=== PATIENT | male | born 1950 | race Caucasian/White ===

== ENCOUNTER → 2019-05-21 | Outpatient (CLI) | payer OTHER ==
[~2019-05-21] MED LIST: ASPI81CH33 PO; ATEN50TA2 PO; CAPE1TAB2 PO; GLIP10TA PO; HYDR-3715 PO; LIDO4CRE4 TOP; LISI20TA19 PO; LOPE2CAP PO; MAGN400T3 PO; OMEP20CA4 PO; PERI12LIQ PO; PROC10TA4 PO; VITA-144 PO; ZOCO80TA PO
--- NOTE | 2019-05-22 08:57 | REP ---
PET/CT: HISTORY: Stage IV colon carcinoma. Restaging. 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 COMPARISONS: No comparison study available. TECHNIQUE: 50 minutes following the intravenous injection of a 8.94 mCi dose of F-18 FDG, three-dimensional PET scintigraphy is acquired from the skull base to the proximal thighs. Triplanar noncontrast CT scanning is acquired through the same anatomic range for attenuation correction, and image registration with scan parameters optimized to minimize radiation exposure to the patient. PET scintigraphy and CT datasets were fused and displayed on a workstation with multiplanar and projection display capability. There is a right internal jugular vein Jhzwti-S-Cdtb catheter in place in the superior vena cava. No pulmonary nodule is appreciated on accompanying chest CT images. There are multiple low-density lesions in the liver including a 4.6 cm well-circumscribed water density lesion consistent with a left lobe cyst. There is a smaller cyst in the left lobe. These show photopenia. There is a cyst in the left kidney measuring 3.4 cm. There is fairly extensive pancolonic diverticulosis. There is an area of mural thickening in the sigmoid colon without pericolonic inflammation. No significant colonic dilation is seen. There is no abnormal hypermetabolic uptake in the head and neck soft tissues or within the thorax. No abnormal hypermetabolic uptake is seen within the liver. In the pelvis, there is mildly hypermetabolic focal uptake in the rectosigmoid colon, which is focally above background gastrointestinal mucosal uptake. Maximum standard uptake value here is 7.42. Background gastrointestinal mucosal uptake in this patient's exam ranges up to 4.0. No hypermetabolic abdominal or pelvic adenopathy is seen. No other abnormal hypermetabolic uptake is seen. IMPRESSION: There is a single focus of abnormal hypermetabolic uptake in the rectosigmoid colon which may correspond to the patient's primary colon malignancy. There are multiple low-density lesions in the liver in addition to two apparent cysts. However, there is no abnormal hypermetabolic uptake in the liver. No abnormal hypermetabolic adenopathy are. Otherwise negative PET scintigraphy. Electronically Signed by Contreras Castelan MD 05/22/2019 11:16 A
== END ==
LOC: M PLARAD 10:22
PROVIDERS: ATTEND Internal Medicine Hematology
DX: C19 Malignant neoplasm of rectosigmoid junction (principal)
CPT/HCPCS: 78815; A9552

== ENCOUNTER → 2019-10-22 | Outpatient (CLI) | payer OTHER ==
[~2019-10-22] MED LIST changes: +METF500T13 PO; +OMEP1CAP73 PO; -OMEP20CA4 PO; +VITA100054 PO; +VITAD1000T PO; +XELO1TAB PO
--- NOTE | 2019-10-22 14:01 | REP ---
PET/CT: HISTORY: Restaging colon carcinoma. Metastatic to the liver being treated with systemic anti neoplastic therapy. COMPARISONS: Comparison PET/CT study May 21, 2019. TECHNIQUE: 48 minutes following the intravenous injection of a 8.40 mCi dose of F-18 FDG, three-dimensional PET scintigraphy is acquired from the skull base to the proximal thighs. Triplanar noncontrast CT scanning is acquired through the same anatomic range for attenuation correction, and image registration with scan parameters optimized to minimize radiation exposure to the patient. PET scintigraphy and CT datasets were fused and displayed on a workstation with multiplanar and projection display capability. PET/CT FINDINGS: Head and neck soft tissues remain unremarkable. A right-sided Qygspn-W-Jiow catheter is noted. There is no abnormal hypermetabolic uptake in the thoracic cavity. No axillary adenopathy or hypermetabolic uptake is seen. The previously noted low-density areas in the liver are less conspicuous and not definitely identified other than the two stable photopenic left lobe hepatic cysts. No abnormal hypermetabolic uptake is seen in the liver or spleen. No abnormal adrenal uptake is observed. There is extensive pancolonic diverticulosis again noted. The previously noted focus of uptake in the rectosigmoid colon is no longer visible. Maximum standard uptake value here today is 5.15, which is actually less than normal colonic mucosal uptake elsewhere on today's scan. Previously, maximum standard uptake value at this level was 7.42. No other abnormality. IMPRESSION: No abnormal colonic, retroperitoneal cathi, or hepatic hypermetabolic uptake is visible today. Electronically Signed by Contreras Castelan MD 10/22/2019 05:08 P
== END ==
LOC: M PLARAD 08:04
PROVIDERS: ATTEND Internal Medicine Hematology
DX: C18.8 Malignant neoplasm of overlapping sites of colon (principal)
CPT/HCPCS: 78815; A9552

== ENCOUNTER → 2019-12-26 | Outpatient (CLI) | payer OTHER ==
--- NOTE | 2019-12-26 11:56 | RADONC ---
DATE OF SERVICE: 12/26/2019 DIAGNOSIS: Metastatic rectal carcinoma. HISTORY OF PRESENT ILLNESS: Mr. Victor is a pleasant 69-year-old gentleman who carries the diagnosis of metastatic rectal carcinoma to the liver. He was in his usual state of health until spring when he presented with 1-week history of rectal bleeding. He was evaluated at the [facility] in [place], [place], which imaging studies showed right lower quadrant mass. The patient then underwent a colonoscopy in October 2017, which reported mass partially obstructing the mid rectum. Ultrasound showed four mass lesions in the liver consistent with metastatic disease in the right lobe only. This was subsequently confirmed by CT scan and biopsy documented adenocarcinoma of the colon. The patient then started chemotherapy at [place]. His CEA in February of 2018 was 231 ng/mL. He began systemic chemotherapy using FOLFIRINOX with Avastin, complicated by profound fatigue with near syncope, and treatment was then changed to CAPOX with Avastin. This was continued until he developed peripheral neuropathy, which led to discontinuation of oxaliplatin. The patient's CEA level peaked at 473 on March of 2018 and subsequently declined 48 by May of 2018. Since then, transferred again to [facility] to [facility], then transferred to [facility] in [place], and he also recently saw a surgeon in [place]. At this point, he is in excellent condition. He had the PET CT in September 2019, and the lesion in the liver no longer FDG avid, and the lesion in the upper rectum still retains mild activity. From the CT compared to the PET CT, it appeared his right liver is significantly atrophied, and his left side is hypertrophied, and his CEA prior to chemotherapy was 473. Now is 1.2, which is consistent with opacity and that he has had the great response. PAST MEDICAL HISTORY: As mentioned, significant peripheral neuropathy, essential hypertension, diabetes, hyperlipidemia. PAST SURGICAL HISTORY: Appendectomy at age 12. FAMILY HISTORY: His father at age 62. He had cancer of the larynx. His mother at the age of 84. SOCIAL HISTORY: He is a [place] . A former smoker. Denies alcohol or drug use. CURRENT MEDICATIONS: Are: - atenolol 50 mg tablet daily - capecitabine 1500 mg tablet twice daily - chlorhexidine 0.12% solution swish and swallow - colecalciferol 1000 units once daily - glipizide 10 mg tablet twice a day - lisinopril 12.5 - loperamide 2 mg capsule p.r.n. - metformin 500 mg tablet twice daily - omeprazole 20 mg before breakfast - prochlorperazine 10 mg as needed - simvastatin 80 mg daily He has no known drug allergies. SYSTEMIC REVIEW: General: Denies chills, fatigue, malaise, recent weight changes. Constitutional: Denies fatigue. Eyes: Denies visual disturbances. HEENT: Denies headache, dysphagia, sore throat, epistaxis. Pulmonary: Denies dyspnea, cough. Cardiovascular: Denies palpitation, chest pain, orthopnea. Gastrointestinal: Denies nausea, vomiting, diarrhea. Genitourinary: Denies urinary frequency, dysuria, incontinence. Skin: Denies rash, jaundice, bruising. Hematologic: Denies bruising, petechiae. Neurological: Denies weakness, numbness. Psychiatric: Denies depression or anxiety. PHYSICAL EXAMINATION: ECOG performance status 0 Vital signs: Weight 216.8 pounds, temperature 98, pulse 72, respiration 18, BP 185/97, O2 saturation is 100%. General: The patient is alert, oriented, well developed, nourished male. Eyes: Conjunctivae, lids normal. ENT: Atraumatic. Neck: No palpable lymphadenopathy. Supple. Chest: Clear to auscultations. Heart: Regular rhythm and rate. Abdomen: Is obese, soft, and nontender, nondistended without any palpable mass, organomegaly. Extremities: No cyanosis. No clubbing. No edema. Skin: No rashes. No lesions. Neurological: No weakness. Psychological: Mood is normal. DIAGNOSIS: metastatic rectal cancer ICD-10 CODEC: 21.8 , ASSESSMENT, AND THE RECOMMENDATION: Mr. Victor is a 69-year-old gentleman. He presented with rectal bleeding in spring, and he had a diagnosis of metastatic colon cancer to the liver. He started chemotherapy with FOLFIRINOX plusAvastin and changed to CAPOX with Avastin, continued until he developed the peripheral neuropathy. Since then, he has been on capecitabine. His CEA level was 473 in March 2018 and decreased, declined to 1.2 currently. Most recent PET CT in September 2019, the liver no longer FDG avid. However, the lesion in the upper rectum still retains mild activity. I have discussed the nature of the disease and options of treatment. At this point, I recommended surgical exploration , as well as check of liver lesions. Depends on the surgical findings, he will be reevaluated for radiation therapy. JESUSITA
== END ==
LOC: M ONCR 08:40
PROVIDERS: ATTEND Radiology Radiation Oncology
DX: C20 Malignant neoplasm of rectum (principal)

== ENCOUNTER 2020-01-16 09:19 | Outpatient (RCR) | payer OTHER ==
--- NOTE | 2020-01-09 23:46 | RADONC ---
RADIATION ONCOLOGY PROGRESS NOTE DATE: 01/01/2020 CHART NUMBER: [id number] DIAGNOSIS: Rectal cancer. STAGE: IV. PROGRESS NOTE : Mr. Victor is a 69-year-old gentleman that was seen by Dr. Khai MD in our department in consultation on 12/26/2019. He was referred for consideration of preoperative concomitant chemotherapy and radiosensitizing chemotherapy preoperatively for residual disease in the rectum. Dr. Ridley recommended surgical exploration without preoperative radiation therapy. Dr. Chang, her medical oncologist, came to discuss this case with me. He had been speaking with the colorectal surgeons who strongly suggest preoperative radiation prior to surgery. Dr. Chang agrees and came to discuss the case with me. I have personally reviewed the patient's PET scan and overall course of treatment. I do believe he is a candidate for preoperative radiation therapy, and therefore, at this time, I have now ordered for simulation for his rectal treatments. In light of the fact that we are now a week out since initial consultation, I have asked for this simulation to be expedited as soon as possible. Once again, in summary, now that I have discussed this case with the medical oncologist and have heard the opinions of the colorectal surgeons, I have decided to offer this patient preoperative radiation and have ordered initiation of simulation and treatment. cc: Reji Chang MD
--- NOTE | 2020-01-11 07:02 | RADONC ---
RADIATION ONCOLOGY SIMULATION NOTE DATE: 01/06/2020 CHART #: [id number] Mr. Victor was taken to the CT scan for CT simulation of his rectal field. CT was accomplished without difficulty or discomfort. Radiation treatment planning is underway and radiation treatments will begin subsequently. An immobilization device was created and will be used throughout the course of treatment. It was created without difficulty or discomfort. I was physically present throughout the course of CT simulation.
[~2020-01-16 09:19] MED LIST changes: +D31000TA2 PO; -LISI20TA19 PO; +LISI20TA35 PO; -VITAD1000T PO
== END 2020-01-24 ==
LOC: M ONCR 09:19
PROVIDERS: ATTEND Radiology Radiation Oncology
DX: C20 Malignant neoplasm of rectum (principal)

== ENCOUNTER → 2020-04-21 | Outpatient (CLI) | payer OTHER ==
--- NOTE | 2020-04-22 09:21 | REP ---
INDICATION: STAGING COLON CA colon carcinoma metastasized to the liver. Rectal carcinoma originally diagnosed in 2018. COMPARISON: Comparison PET-CT studies are from October 22, 2019 and May 21, 2019.. TECHNIQUE: Sixty-six minutes following the intravenous injection of a 8.4 mCi dose of F-18 FDG, three-dimensional PET scintigraphy is acquired from the skull base to the proximal thighs. Triplanar noncontrast CT scanning is acquired through the same anatomic range for attenuation correction, and image registration with scan parameters optimized to minimize radiation exposure to the patient. PET scintigraphy and CT datasets were fused and displayed on a workstation with multiplanar and projection display capability. FINDINGS: There is no evidence of soft tissue adenopathy or abnormal soft tissue uptake in the head and neck. There is a focus of mildly increased uptake associated with a calcified disc protrusion in the midcervical spine. This does not appear to be neoplastic. No abnormal pulmonary parenchymal or intrathoracic uptake is seen. No extra thoracic adenopathy is observed in the axilla or supraclavicular nodes. There are unfortunately 2 new foci of hypermetabolic uptake in the liver consistent with metastatic disease. Largest of these is 2.9 cm in diameter in the posterior aspect of the right lobe of the liver where maximum standard uptake value is 11.33. The 2nd lesion is more lateral in the right mid hepatic lobe, 2.5 cm in diameter, with maximum standard uptake value also elevated at 10.52. No other focal liver lesion is seen. There is however hypermetabolic new lymphadenopathy in the retroperitoneum. An aortocaval lymph node displays hypermetabolic uptake, 6.24 SUV. This lymph node measures 9 x 14 mm. There is a left periaortic lymph which is new and mildly enlarged measuring 11 by 19 mm. This also displays hypermetabolic uptake with a maximum standard uptake value 6.46. No other abnormal hypermetabolic uptake is seen in the abdomen or pelvis. IMPRESSION: New foci of hypermetabolic uptake consistent with metastases in retroperitoneal lymph nodes and at 2 foci within the liver. <Electronically signed by Abdi Castelan > 04/22/20 [id number]
== END ==
LOC: M PLARAD 10:57
PROVIDERS: ATTEND Nurse Practitioner
DX: C18.9 Malignant neoplasm of colon, unspecified (principal); C78.7 Secondary malignant neoplasm of liver and intrahepatic bile duct; R93.2 Abnormal findings on diagnostic imaging of liver and biliary tract; R59.0 Localized enlarged lymph nodes
CPT/HCPCS: 78815; A9552

== ENCOUNTER 2020-10-13 14:43 | Observation (INO) | payer OTHER ==
[~2020-10-13] VITALS: Ht 172.7 cm; Wt 94.1 kg
[~2020-10-13 14:43] MED LIST changes: +COVI100V IM; +K-TA1TAB PO; +LOPE1CAP5 PO; +ONDA8TAB10 PO
[2020-10-13] MEDS ORDERED: NS 1,000 ML IV SCH (15:10)
--- NOTE | 2020-10-13 15:16 | REP ---
INDICATION: neuro symptoms. COMPARISON: None. TECHNIQUE: Axial CT images with multiplanar reformations. FINDINGS: No acute bleed or acute large vessel territorial infarct. Ventricles, cisterns and sulci are within normal limits. No mass effect or midline shift. No abnormal fluid collections. Scattered ill-defined hypodensities seen throughout the white matter is most consistent with sequelae of chronic microvascular ischemic disease. Paranasal sinuses and mastoid air cells are clear IMPRESSION: No acute findings. <Electronically signed by Juan Pablo Pineda > 10/13/20 [id number]
[2020-10-13 15:36] LABS: BASO % 0.2 % (0.0-1.0); HEMATOCRIT 32.6 % (42.0-52.0); HEMOGLOBIN 10.7 g/dl (13.5-17.5); LYMPH # 0.3 10^3/uL (1.5-5.0); LYMPH % 7.6 % (24.0-44.0); MEAN CORPUSCULAR HEMOGLOBIN 31.7 pg (27.0-33.0); MEAN CORPUSCULAR HGB CONC 32.8 g/dl (32.0-36.5); MEAN CORPUSCULAR VOLUME 96.4 fl (80.0-96.0); MONO # 0.1 10^3/uL (0.0-0.8); MONO % 1.3 % (2.0-8.0); NEUTROPHILS % 89.3 % (36.0-66.0); RED BLOOD COUNT 3.38 10^6/uL (4.30-6.10); WHITE BLOOD COUNT 4.5 10^3/uL (4.0-10.0)
[2020-10-13 15:45] LABS: PLATELET COUNT, AUTOMATED 91 10^3/uL (150-450)
--- NOTE | 2020-10-13 15:52 | REP ---
INDICATION: Altered Mental Status COMPARISON: None. TECHNIQUE: Portable AP view of the chest FINDINGS: The mediastinum and cardiac silhouette are within normal limits for portable technique. Jjxlji-S-Fteo identified with tip in the SVC. The lung green are clear without acute consolidation, effusion, or pneumothorax. Skeletal structures are intact. IMPRESSION: No acute cardiopulmonary process appreciated. <Electronically signed by Jhonathan Villegas > 10/13/20 [id number]
[2020-10-13 16:03] LABS: ALT/SGPT 17 U/L (12-78); BLOOD UREA NITROGEN 12 MG/DL (7-18); CALCIUM LEVEL 7.8 MG/DL (8.8-10.2); CARBON DIOXIDE LEVEL 28 MEQ/L (21-32); CHLORIDE LEVEL 104 MEQ/L (98-107); CREATININE FOR GFR 1.12 MG/DL (0.70-1.30); GLOMERULAR FILTRATION RATE > 60.0 (>49); GLUCOSE, FASTING 203 MG/DL (70-100); SODIUM LEVEL 140 MEQ/L (136-145)
[2020-10-13 16:04] LABS: ACETAMINOPHEN LEVEL < 2.0 UG/ML (10.0-30.0); ALBUMIN 3.4 GM/DL (3.2-5.2); BILIRUBIN,DIRECT 0.2 MG/DL (0.0-0.2); BILIRUBIN,TOTAL 0.5 MG/DL (0.2-1.0); CK-MB VALUE MASS < 1.0 NG/ML (<3.6); CPK CREATINE PHOSPHOKINASE 116 U/L (39-308); ETHYL ALCOHOL (ETHANOL) < 0.003 % (0.000-0.010); MB/CK RELATIVE INDEX 0.86 (< OR =4); THYROID STIMULATING HORMONE 0.856 uIU/ML (0.358-3.740); TOTAL PROTEIN 7.4 GM/DL (6.4-8.2); TROPONIN I < 0.02 NG/ML (< 0.10)
[2020-10-13] MEDS ORDERED: POTASSIUM CHLORIDE 10 MEQ SR TABLET PO ONE (16:30)
[2020-10-13] MEDS ORDERED: KCL 10MEQ/100ML SWI (KRUN) 10 MEQ in IV 1 EA IV ONE (17:00)
[2020-10-13 17:08] LABS: AMPHETAMINES LEVEL URINE NEGATIVE (NEGATIVE); BARBITURATES URINE NEGATIVE (NEGATIVE); BENZODIAZEPINES URINE NEGATIVE (NEGATIVE); CANNABINOIDS URINE NEGATIVE (NEGATIVE); COCAINE METABOLITE URINE NEGATIVE (NEGATIVE); METHADONE URINE NEGATIVE (NEGATIVE); OPIATES URINE NEGATIVE (NEGATIVE); PHENCYCLIDINE URINE NEGATIVE (NEGATIVE)
[2020-10-13] MEDS ORDERED: DEXTROSE 50% 50 ML SYRINGE IV PRN (17:10)
[2020-10-13] MEDS ORDERED: GLUCAGON INJ 1MG VIAL SC PRN (17:10)
[2020-10-13] MEDS ORDERED: GLUCOSE 4GM CHEW TABLET PO PRN (17:10)
--- NOTE | 2020-10-13 17:29 | HPEPDOC ---
[facility] Medical History & Physical Date of Admission Oct 13, 2020 Date of Service: Oct 13, 2020 History and Physical Chief complaint: Who presented to the emergency room with difficulty expressing himself History of present illness: Patient is a 70-year-old male who presented to the emergency room with difficulty expressing himself. Patient reports that he follows with oncology earlier today had received an infusion of Oxaliplatin and Bevacizumab, Fosaprepitant, Dexamethasone, Palonosetron, Diphenhydramine, Tylenol. Patient had gone home after the infusions and presented again this afternoon because he was having difficulty expressing himself. Patient reported that he was unable to express the words out of his mouth but did not have any confusion or difficulty with understanding. He reports that this occurred for a brief period and had resolved. However, it worried him and he came to the ER for evaluation. Currently patient denies any chest pain, shortness of breath, palpitations or cough reported nausea earlier today, which has resolved. Denies any vomiting, abdominal pain consultation, diarrhea, or urinary discomfort. Denies any fevers or chills. Patient reports that his weight and appetite have been fairly normal. Past Medical History: HTN NIDDM2 DLP GERD Rectal Adenocarcinoma (Dx 10/2017; on chemotherapy; s/p radidation; s/p resection of solitary liver metastasis) Past Surgical History: Resection of liver mass Chemo-Port placement Appendectomy, 1966 Allergies: See below Medications: See below Family History: - Sr. with a history of breast cancer Social History: - Denies the use of illicit drugs; patient reports a remote history of smoking for 4 years when he was in the [employer]; Has quit the use of alcohol 2 years ago - Denies recent travel or sick contacts - Lives alone - Occupation; patient reports that he used to be part of the [employer] and then worked at [employer] for 20 years Review of Systems: 10 point review of systems complete, all negative otherwise stated in HPI Physical exam: - Vitals: BP [144/78], HR [75], RR [18], Sat [98%RA], Temp [95.0F] - General: Lying in bed, Speaking in full sentences, AAOx3 - HEENT: NC, AT, PERRLA - CVS: RRR, +S1S2 - Lungs: Fair air entry bilaterally, No appreciable wheezing / rales / rhonchi - Abdomen: Soft, Non-distended, Non-tender - Extremities: No lower extremity edema, No calf tenderness - Neuro: 5/5 strength at upper / lower extremities bilaterally, CN2-12 grossly intact - Skin: No visible rashes Labs: See below Imaging: CT head 10/13: No acute findings. CXR 10/13: No acute cardiopulmonary process appreciated. EKG: See below Assessment and Plan: Difficulty expressing self - likely 2/2 medications (chemotherapy), less likely 2/2 stroke - Patient presented to the emergency room with difficulty expressing himself - Patient reported that this occurred transiently but has now resolved completely - Physical does not reveal any focal neurologic deficits - CT head is negative - Will check MRI/MRA/cardiac risk profile/duplex carotid ultrasound/echocardiogram - Will c/w telemetry monitoring and neuro checks - Will c/w Atorvastatin 80 and ASA 81 Rectal Adenocarcinoma - Dx 10/2017; on chemotherapy - s/p radiation - s/p resection of solitary liver metastasis - Patient follows with Dr. Fisher of oncology; has received infusion on the date of admission - Received Oxaliplatin and Bevacizumab, Fosaprepitant, Dexamethasone, Palonosetron on 10/13 AM - Will have outpatient follow up with Oncology HTN - Will allow for permissive HTN until MRI results - Will c/w Atenolol - Will hold Lisinopril / HCTZ NIDDM2 - Will start ISS DLP - c/w Simvastatin and ASA 81 GERD - c/w Omeprazole DVT prophylaxis - Will start TEDs/Sequentials Disposition: - Anticipate DC within 24 hours Vital Signs Vital Signs Date Time Temp Pulse Resp B/P (MAP) Pulse Ox O2 Delivery O2 Flow Rate FiO2 10/13/20 14:57 95.0 84 22 145/94 (111) 99 Room Air Laboratory Data Labs 24H Laboratory Tests 2 10/13/20 15:21: Immature Granulocyte % (Auto) 1.6, Neutrophils (%) (Auto) 89.3H, Lymphocytes (%) (Auto) 7.6L, Monocytes (%) (Auto) 1.3L, Eosinophils (%) (Auto) 0.0, Basophils (%) (Auto) 0.2, Neutrophils # (Auto) 4.0, Lymphocytes # (Auto) 0.3L, Monocytes # (Auto) 0.1, Eosinophils # (Auto) 0.0, Basophils # (Auto) 0.0, Nucleated Red Blood Cells % (auto) 0.0, Immature Platelet Fraction 5.6, Anion Gap 8, Glomerular Filtration Rate > 60.0, Lactic Acid Level 2.7*H, Calcium Level 7.8L, Total Bilirubin 0.5, Direct Bilirubin 0.2, Aspartate Amino Transf (AST/SGOT) 25, Alanine Aminotransferase (ALT/SGPT) 17, Alkaline Phosphatase 67, Ammonia 20, Total Creatine Kinase 116, Creatine Kinase MB < 1.0, Creatine Kinase MB Relative Index 0.86, Troponin I < 0.02, Total Protein 7.4, Albumin 3.4, Albumin/Globulin Ratio 0.9, Thyroid Stimulating Hormone (TSH) 0.856, Acetaminophen Level < 2.0L, Ethyl Alcohol Level < 0.003 10/13/20 16:15: Urine Color YELLOW, Urine Appearance CLEAR, Urine pH 5.0, Urine Specific [place] 1.017, Urine Protein 2+H, Urine Glucose (UA) 3+H, Urine Ketones NEGATIVE, Urine Blood 1+H, Urine Nitrite NEGATIVE, Urine Bilirubin NEGATIVE, Urine Urobilinogen 0.2, Urine Leukocyte Esterase NEGATIVE, Urine WBC (Auto) 1, Urine RBC (Auto) 1, Urine Hyaline Casts (Auto) 0, Urine Bacteria (Auto) NEGATIVE, Urine Squamous Epithelial Cells 0, Urine Mucus (Auto) SMALL, Urine Sperm (Auto) , Urine Opiates Screen NEGATIVE, Urine Methadone Screen NEGATIVE, Urine Barbiturates Screen NEGATIVE, Urine Phencyclidine Screen NEGATIVE, Urine Amphetamines Screen NEGATIVE, Urine Benzodiazepines Screen NEGATIVE, Urine Cocaine Metabolite Screen NEGATIVE, Urine Cannabinoids Screen NEGATIVE CBC/BMP Laboratory Tests 10/13/20 15:21 Home Medications Scheduled Aspirin (Aspirin) 81 Mg Tab.chew, 81 MG PO DAILY for pain Atenolol (Atenolol) 50 Mg Tablet, 75 MG PO DAILY Capecitabine (Capecitabine) 500 Mg Tablet, 4 TAB PO BID 14 DAYS ON 7 DAYS OFF Cholecalciferol (Vitamin D3) (Vitamin D3) 1,000 Unit Tablet, 1,000 UNITS PO DAILY for Vitamin D deficiency Take 1000 mg po q day Glipizide (Glipizide) 10 Mg Tablet, 10 MG PO BID Lidocaine (Lidocaine) 15 Gm Cream..g., 1 APLCT TOP ASDIRECTED Apply to [facility] 30 minutes prior to accessing Lisinopril/Hydrochlorothiazide (Lisinopril-Hctz 20-12.5 mg Tab) 1 Each Tablet, 1 TAB PO DAILY Loperamide HCl (Loperamide) 2 Mg Capsule, 2 MG PO ASDIRECTED one capsule after each bowel movement to a maximum 6 daily Magnesium Oxide (Magnesium Oxide) 400 Mg Tablet, 400 MG PO DAILY for constipation Metformin HCl (Metformin HCl) 500 Mg Tablet, 500 MG PO BID Omeprazole (Omeprazole) 20 Mg Capsule.dr, 20 MG PO DAILY Potassium Chloride (K-Tab ER) 20 Meq Tablet.er, 1 TAB PO DAILY for low potassium One tab po daily after food Simvastatin (Zocor) 80 Mg Tablet, 80 MG PO DAILY Scheduled PRN Ondansetron HCl (Ondansetron HCl) 8 Mg Tablet, 8 MG PO Q8H PRN for NAUSEA OR VOMITING Prochlorperazine Maleate (Prochlorperazine Maleate) 10 Mg Tablet, 10 MG PO Q6H PRN for NAUSEA Miscellaneous Medications Covid-19 Vacc,Mrna(Moderna)/Pf (Moderna Covid19 Vacc(Unapprov)) 100 Mcg/0.5 Ml Vial, 100 MCG IM [Ct Fax Number] [place] FAX NUMBER [phone] Allergies Coded Allergies: No Known Allergies (Unverified , 05/08/19) ADRIÁN FRIEDMAN MD Oct 13, 2020 17:29
--- NOTE | 2020-10-13 17:43 | REP ---
INDICATION: Difficulty speaking COMPARISON: None. TECHNIQUE: Gomez scale and color Doppler evaluation using linear high frequency transducer Findings: FINDINGS: Two-dimensional gomez scale and color images demonstrate normal arterial lumen with laminar flow and no appreciable narrowing. Color Doppler interrogation demonstrates normal arterial wave patterns and velocities with no significant spectral broadening. Normal flow direction is appreciated in the bilateral vertebral arteries. ICA peak systolic velocity: Right 60.9 cm/s; Left 79.2 cm/s ICA diastolic velocity: Right 17.4 cm/s; Left 25.2 cm/s ECA peak systolic velocity: Right 106 cm/s; Left 110 cm/s CCA peak systolic velocity: Right 55.2 cm/s; Left 97.4 cm/s ICA/CCA ratio: Right 1.1 cm/s; Left 0.8 cm/s IMPRESSION: No hemodynamically significant areas of narrowing or stenosis appreciated. Based on set standards narrowing falls within the normal/less than 50% range. <Electronically signed by Jhonathan Villegas > 10/13/20 [id number]
[2020-10-13] MEDS ORDERED: ASPI81TA26 PO (17:45)
[2020-10-13 18:23] LABS: CHOLESTEROL LEVEL 123 MG/DL (<200); CHOLESTEROL RISK RATIO 3.843 (<5); HDL CHOLESTEROL 32 MG/DL (>40); LDL CHOLESTEROL 39 MG/DL (<100); NON-HDL-C 91 MG/DL; TRIGLYCERIDES LEVEL 261 MG/DL (<150)
[2020-10-13 19:23] LABS: RSV AMPLIFICATION NEGATIVE (NEGATIVE)
[2020-10-13 20:38] VITALS: BP 168/76
--- NOTE | 2020-10-13 20:55 | REPVR ---
PROCEDURE INFORMATION: Exam: MR Head Without Contrast Exam date and time: 10/13/2020 8:29 PM Age: 70 years old Clinical indication: Speech disturbance; Slurred speech; Additional info: Difficulty speaking TECHNIQUE: Imaging protocol: MR of the head without contrast. COMPARISON: CT Head without contrast 10/13/2020 3:05 PM FINDINGS: Brain: There is no acute infarct. No acute intracranial hemorrhage is seen. No mass, mass effect, midline shift, or herniation is noted. There are mild non-specific foci of T2 and FLAIR hyperintensity in the periventricular and subcortical white matter and faye, which are likely the sequela of chronic small vessel ischemic injury. Incidental note is made of calcifications in the globus pallidus bilaterally. Cerebral ventricles: The ventricles are mildly dilated in proportion to the sulci, which is compatible with mild generalized cerebral volume loss. Bones/joints: Unremarkable. Paranasal sinuses: There is minimal mucosal thickening in the frontal, maxillary, and ethmoid sinuses. No air-fluid levels are present in the sinuses. Mastoid air cells: The mastoid air cells are well aerated. Orbital cavity: Unremarkable. Soft tissues: Unremarkable. IMPRESSION: 1. No acute infarct or acute intracranial abnormality. 2. Mild chronic microangiopathic changes and mild cerebral atrophy. Electronically signed by: Antelmo Worrell On 10/13/2020 20:55:35 PM
[2020-10-13] MEDS ORDERED: SIMVASTATIN 40 MG TAB PO SCH (21:00)
[2020-10-13] MEDS ORDERED: HumaLOG INSULIN (NovoLOG) PER UNIT SC SCH (21:00)
--- NOTE | 2020-10-13 21:01 | REPVR ---
PROCEDURE INFORMATION: Exam: MRA Head Without Contrast; Arteriography Exam date and time: 10/13/2020 8:29 PM Age: 70 years old Clinical indication: Speech disturbance; Slurred speech; Additional info: Difficulty speaking TECHNIQUE: Imaging protocol: Magnetic resonance angiography head without contrast. Exam focused on the arteries. COMPARISON: CT Head without contrast 10/13/2020 3:05 PM FINDINGS: ANTERIOR CIRCULATION: Right internal carotid artery: Intracranial segment is patent with no significant stenosis. No aneurysm. Right middle cerebral artery: No occlusion or significant stenosis. No aneurysm. Right anterior cerebral artery: No occlusion or significant stenosis. No aneurysm. Left internal carotid artery: Intracranial segment is patent with no significant stenosis. No aneurysm. Left middle cerebral artery: No occlusion or significant stenosis. No aneurysm. Left anterior cerebral artery: No occlusion or significant stenosis. No aneurysm. POSTERIOR CIRCULATION: Right vertebral artery: No occlusion or significant stenosis. No aneurysm. Left vertebral artery: No occlusion or significant stenosis. No aneurysm. Basilar artery: No occlusion or significant stenosis. No aneurysm. Right posterior cerebral artery: No occlusion or significant stenosis. No aneurysm. Left posterior cerebral artery: No occlusion or significant stenosis. No aneurysm. IMPRESSION: No stenosis or occlusion. Electronically signed by: Jah Hdz On 10/13/2020 21:01:08 PM
[2020-10-13] MEDS: HumaLOG INSULIN (NovoLOG) PER UNIT SC SCH (22:22)
[2020-10-13] MEDS: NS 1,000 ML IV SCH (22:22)
[2020-10-14] VITALS: BP 172/80
[2020-10-14 04:00] VITALS: BP 176/78
[2020-10-14 06:40] LABS: HEMATOCRIT 30.1 % (42.0-52.0); HEMOGLOBIN 9.9 g/dl (13.5-17.5); LYMPH # 0.3 10^3/uL (1.5-5.0); LYMPH % 5.5 % (24.0-44.0); MEAN CORPUSCULAR HEMOGLOBIN 31.5 pg (27.0-33.0); MEAN CORPUSCULAR HGB CONC 32.9 g/dl (32.0-36.5); MEAN CORPUSCULAR VOLUME 95.9 fl (80.0-96.0); MONO # 0.2 10^3/uL (0.0-0.8); MONO % 4.2 % (2.0-8.0); NEUTROPHILS # 4.9 10^3/uL (1.5-8.5); NEUTROPHILS % 89.9 % (36.0-66.0); RED BLOOD COUNT 3.14 10^6/uL (4.30-6.10); WHITE BLOOD COUNT 5.4 10^3/uL (4.0-10.0)
[2020-10-14 06:42] LABS: PLATELET COUNT, AUTOMATED 80 10^3/uL (150-450)
[2020-10-14 07:26] LABS: BLOOD UREA NITROGEN 17 MG/DL (7-18); CALCIUM LEVEL 7.8 MG/DL (8.8-10.2); CARBON DIOXIDE LEVEL 26 MEQ/L (21-32); CHLORIDE LEVEL 107 MEQ/L (98-107); CREATININE FOR GFR 0.93 MG/DL (0.70-1.30); GLOMERULAR FILTRATION RATE > 60.0 (>49); GLUCOSE, FASTING 236 MG/DL (70-100); POTASSIUM SERUM 3.5 MEQ/L (3.5-5.1); SODIUM LEVEL 141 MEQ/L (136-145)
[2020-10-14] MEDS: HumaLOG INSULIN (NovoLOG) PER UNIT SC SCH ×2 (08:43→13:09)
[2020-10-14] MEDS ORDERED: POTASSIUM CHLORIDE 10 MEQ SR TABLET PO SCH (09:00)
[2020-10-14] MEDS ORDERED: atenoloL 50 MG TAB PO SCH (09:00)
[2020-10-14] MEDS ORDERED: VITAMIN D 1,000 INTERNATIONAL UNITS TABLET PO SCH (09:00)
[2020-10-14] MEDS ORDERED: MAGNESIUM OXIDE 400MG TAB (MAG-OX) PO SCH (09:00)
[2020-10-14] MEDS ORDERED: hydroCHLOROthiazide 12.5 MG CAPSULE PO SCH (09:00)
[2020-10-14] MEDS ORDERED: OMEPRAZOLE 20 MG CAP PO SCH (09:00)
[2020-10-14] MEDS ORDERED: ASPIRIN 81MG ENTERIC TABLET PO SCH (09:00)
[2020-10-14] MEDS: NS 1,000 ML IV SCH (09:41)
[2020-10-14 12:00] VITALS: BP 168/86
--- NOTE | 2020-10-14 12:38 | DS.PDOC ---
Discharge Summary General Date of Admission Oct 13, 2020 at 14:44 Date of Discharge 10/14/2020 Discharge Summary PROCEDURES PERFORMED DURING STAY: [None]. ADMITTING DIAGNOSES / DISCHARGE DIAGNOSES: COMPLICATIONS/CHIEF COMPLAINT: Difficulty expressing self HISTORY OF PRESENT ILLNESS: Patient is a 70-year-old male who presented to the emergency room with difficulty expressing himself. Patient reports that he follows with oncology earlier today had received an infusion of Oxaliplatin and Bevacizumab, Fosaprepitant, Dexamethasone, Palonosetron, Diphenhydramine, Tylenol. Patient had gone home after the infusions and presented again this afternoon because he was having difficulty expressing himself. Patient reported that he was unable to express the words out of his mouth but did not have any confusion or difficulty with understanding. He reports that this occurred for a brief per iod and had resolved. However, it worried him and he came to the ER for evaluation. Patient was admitted to the hospital service for further evaluation and treatment. HOSPITAL COURSE: Difficulty expressing self - likely 2/2 medications (chemotherapy), unlikely 2/2 stroke / TIA - Patient presented to the ER with difficulty expressing himself; patient reports that he usually gets similar symptoms after receiving high doses of chemotherapy - Patient reported that this occurred transiently but has now resolved completely - as not had any recurrence since admission - Physical does not reveal any focal neurologic deficits - CT / MRI / MRA / Carotid US negative (noted below) - c/w Atorvastatin 80 and ASA 81 based on outpatient regimen - Will have outpatient follow-up with primary care provider within the next 7 days Rectal Adenocarcinoma - Dx 10/2017; on chemotherapy - s/p radiation - s/p resection of solitary liver metastasis - Patient follows with Dr. Fisher of oncology; has received infusion on the date of admission - Received Oxaliplatin and Bevacizumab, Fosaprepitant, Dexamethasone, Palonosetron on 10/13 AM - Outpatient follow up with Oncology HTN - BP elevated this morning - however resumed home regimen this morning; will repeat BP prior to discharge - c/w Atenolol; resumed Lisinopril / HCTZ NIDDM2 - c/w ISS; will resume oral regimen as an outpatient DLP - c/w Simvastatin and ASA 81 GERD - c/w Omeprazole DVT prophylaxis - c/w TEDs/Sequentials DISCHARGE MEDICATIONS: Please see below. ALLERGIES: Please see below. PHYSICAL EXAMINATION ON DISCHARGE: Vitals (See below) General: Lying in bed, no acute distress, comfortable, AAOx3 HEENT: NC, AT CVS: RRR, +S1S2 Lungs: Fair air entry b/l, -w/r/r Abdomen: Soft, ND, NT Extremities: - Edema, - Calf tenderness LABORATORY DATA: Please see below. IMAGING: CT head 10/13: No acute findings. CXR 10/13: No acute cardiopulmonary process appreciated. MRA Brain 10/13: No stenosis or occlusion. Carotid Vascular US 10/13: No hemodynamically significant areas of narrowing or stenosis appreciated. Based on set standards narrowing falls within the normal/less than 50% range. MRI Brain 10/13: 1. No acute infarct or acute intracranial abnormality. 2. Mild chronic microangiopathic changes and mild cerebral atrophy. ACTIVITY: [As tolerated]. DISCHARGE PLAN: Follow-up with primary care provider within the next 7 days Remain compliant with treatment plan and medications Return to the ER if you experience any problems DISPOSITION: Home with services DISCHARGE CONDITION: [Stable]. TIME SPENT ON DISCHARGE: 35 minutes Vital Signs/I&Os Vital Signs Date Time Temp Pulse Resp B/P (MAP) Pulse Ox O2 Delivery O2 Flow Rate FiO2 10/14/20 08:42 84 180/78 10/14/20 08:00 97.1 20 99 Room Air I&O- Last 24 Hours up to 6 AM 10/14/20 06:00 Intake Total 300 ml Output Total 0 ml Balance 300 ml Laboratory Data Labs 24H Laboratory Tests 2 10/13/20 15:21: Immature Granulocyte % (Auto) 1.6, Neutrophils (%) (Auto) 89.3H, Lymphocytes (%) (Auto) 7.6L, Monocytes (%) (Auto) 1.3L, Eosinophils (%) (Auto) 0.0, Basophils (%) (Auto) 0.2, Neutrophils # (Auto) 4.0, Lymphocytes # (Auto) 0.3L, Monocytes # (Auto) 0.1, Eosinophils # (Auto) 0.0, Basophils # (Auto) 0.0, Nucleated Red Blood Cells % (auto) 0.0, Immature Platelet Fraction 5.6, Anion Gap 8, Glomerular Filtration Rate > 60.0, Lactic Acid Level 2.7*H, Calcium Level 7.8L, Total Bilirubin 0.5, Direct Bilirubin 0.2, Aspartate Amino Transf (AST/SGOT) 25, Alanine Aminotransferase (ALT/SGPT) 17, Alkaline Phosphatase 67, Ammonia 20, Total Creatine Kinase 116, Creatine Kinase MB < 1.0, Creatine Kinase MB Relative Index 0.86, Troponin I < 0.02, Total Protein 7.4, Albumin 3.4, Albumin/Globulin Ratio 0.9, Triglycerides Level 261H, Total Cholesterol 123, LDL Cholesterol 39, Non-HDL Cholesterol (LDL + VLDL) 91, Total HDL Cholesterol 32L, Cholesterol/HDL Ratio 3.843, Thyroid Stimulating Hormone (TSH) 0.856, Acetaminophen Level < 2.0L, Ethyl Alcohol Level < 0.003 10/13/20 16:15: Urine Color YELLOW, Urine Appearance CLEAR, Urine pH 5.0, Urine Specific [place] 1.017, Urine Protein 2+H, Urine Glucose (UA) 3+H, Urine Ketones NEGATIVE, Urine Blood 1+H, Urine Nitrite NEGATIVE, Urine Bilirubin NEGATIVE, Urine Urobilinogen 0.2, Urine Leukocyte Esterase NEGATIVE, Urine WBC (Auto) 1, Urine RBC (Auto) 1, Urine Hyaline Casts (Auto) 0, Urine Bacteria (Auto) NEGATIVE, Urine Squamous Epithelial Cells 0, Urine Mucus (Auto) SMALL, Urine Sperm (Auto) , Urine Opiates Screen NEGATIVE, Urine Methadone Screen NEGATIVE, Urine Barbiturates Screen NEGATIVE, Urine Phencyclidine Screen NEGATIVE, Urine Amphetamines Screen NEGATIVE, Urine Benzodiazepines Screen NEGATIVE, Urine Cocaine Metabolite Screen NEGATIVE, Urine Cannabinoids Screen NEGATIVE 10/13/20 18:25: Coronavirus (COVID-19)(PCR) NEGATIVE, Influenza Type A (RT-PCR) NEGATIVE, Influenza Type B (RT-PCR) NEGATIVE, Respiratory Syncytial Virus (PCR) NEGATIVE 10/13/20 19:44: Lactic Acid Followup at 4 Hours 2.5*H 10/13/20 22:21: Bedside Glucose (Misc Panel) 231H 10/14/20 06:13: Immature Granulocyte % (Auto) 0.4, Neutrophils (%) (Auto) 89.9H, Lymphocytes (%) (Auto) 5.5L, Monocytes (%) (Auto) 4.2, Eosinophils (%) (Auto) 0.0, Basophils (%) (Auto) 0.0, Neutrophils # (Auto) 4.9, Lymphocytes # (Auto) 0.3L, Monocytes # (Auto) 0.2, Eosinophils # (Auto) 0.0, Basophils # (Auto) 0.0, Nucleated Red Blood Cells % (auto) 0.0, Anion Gap 8, Glomerular Filtration Rate > 60.0, Calcium Level 7.8L, Magnesium Level 1.0L 10/14/20 11:57: Bedside Glucose (Misc Panel) 244H CBC/BMP Laboratory Tests 10/13/20 15:21 10/14/20 06:13 FSBS Laboratory Tests Test 10/13/20 22:21 10/14/20 11:57 Range/Units Bedside Glucose (Misc Panel) 231 244 80-115 MG/DL Discharge Medications Scheduled Aspirin (Aspirin EC) 81 Mg Tablet.dr, 81 MG PO DAILY, (Reported) Atenolol (Atenolol) 50 Mg Tablet, 75 MG PO DAILY, (Reported) Capecitabine (Capecitabine) 500 Mg Tablet, 4 TAB PO BID 14 DAYS ON 7 DAYS OFF Cholecalciferol (Vitamin D3) (Vitamin D3) 1,000 Unit Tablet, 1,000 UNITS PO DA SUSHMA for Vitamin D deficiency Take 1000 mg po q day Glipizide (Glipizide) 10 Mg Tablet, 10 MG PO BID, (Reported) Lidocaine (Lidocaine) 15 Gm Cream..g., 1 APLCT TOP ASDIRECTED Apply to [facility] site 30 minutes prior to accessing Lisinopril/Hydrochlorothiazide (Lisinopril-Hctz 20-12.5 mg Tab) 1 Each Tablet, 1 TAB PO DAILY, (Reported) Loperamide HCl (Loperamide) 2 Mg Capsule, 2 MG PO ASDIRECTED one capsule after each bowel movement to a maximum 6 daily Magnesium Oxide (Magnesium Oxide) 400 Mg Tablet, 400 MG PO DAILY, (Reported) Metformin HCl (Metformin HCl) 500 Mg Tablet, 500 MG PO BID Omeprazole (Omeprazole) 20 Mg Capsule.dr, 20 MG PO DAILY, (Reported) Potassium Chloride (K-Tab ER) 20 Meq Tablet.er, 1 TAB PO DAILY for low potassium One tab po daily after food Simvastatin (Zocor) 80 Mg Tablet, 80 MG PO QHS, (Reported) Scheduled PRN Ondansetron HCl (Ondansetron HCl) 8 Mg Tablet, 8 MG PO Q8H PRN for NAUSEA OR VOMITING Prochlorperazine Maleate (Prochlorperazine Maleate) 10 Mg Tablet, 10 MG PO Q6H PRN for NAUSEA Allergies Coded Allergies: No Known Allergies (Unverified , 05/08/19) ADRIÁN FRIEDMAN MD Oct 14, 2020 12:38
[2020-10-14 12:46] VITALS: BP 168/86
[2020-10-14 13:57] VITALS: BP 160/88
[2020-10-14] MEDS ORDERED: hydrALAZINE 20MG/ML 1ML VIAL (J0360 PER 20MG) IV ONE (14:00)
[2020-10-14] MEDS ORDERED: AMLO1TAB25 PO ×2 (14:02→15:26)
--- NOTE | 2020-10-15 12:25 | ECGEPIP ---
[facility] - ED Test Date: 2020-10-13 Pat Name: CHRISTIAN GONZALEZ Department: Room: - Gender: Male [employer]: : 1950 Requested By: JULIA FLANAGAN Order Number: [id number] Reading MD: Tabatha Piedra Measurements Intervals [place] Rate: 76 P: 37 AL: 188 QRS: 3 QRSD: 138 T: 5 QT: 400 QTc: 450 Interpretive Statements Normal sinus rhythm Right bundle branch block No prior Electronically Signed on 10-15-2020 12:25:10 EDT by Tabatha Piedra
== END 2020-10-14 16:04 | disposition home or self-care (01) ==
LOC: M ED 14:43 → EDBD 14:43 → M ED INP 14:44 → M PCU 20:38
PROVIDERS: ADMIT Internal Medicine; ATTEND Internal Medicine
DX: R47.9 Unspecified speech disturbances (principal); R09.89 Other specified symptoms and signs involving the circulatory and respiratory systems; R29.818 Other symptoms and signs involving the nervous system; Z79.899 Other long term (current) drug therapy; C20 Malignant neoplasm of rectum; Z92.3 Personal history of irradiation; I10 Essential (primary) hypertension; E11.9 Type 2 diabetes mellitus without complications; E78.49 Other hyperlipidemia; K21.9 Gastro-esophageal reflux disease without esophagitis; Z79.82 Long term (current) use of aspirin; Z79.84 Long term (current) use of oral hypoglycemic drugs
CPT/HCPCS: 36415; 36591; 70450; 70544; 70551; 71045; 80048; 80061; 80143; 80307; 81001; 82077; 82140; 82550; 82553; 83605; 83735; 84443; 84484; 85025; 85049; 85055; 87631; 93005; 93041; 93880; 94760; 96360; 96361; 96367; 96375; 96413; 96415; 96417; 99285; G0378; G0463; J1100; J1200; J1453; J1642; J2469; J9035; J9263

== ENCOUNTER → 2020-11-14 | Outpatient (CLI) | payer OTHER, MEDICARE, MEDICAID ==
[~2020-11-14] MED LIST changes: +AMLO1TAB25 PO; +ASPI81TA26 PO
[2020-11-14 11:23] LABS: ALBUMIN 3.5 GM/DL (3.2-5.2); ALT/SGPT 16 U/L (12-78); BILIRUBIN,TOTAL 0.6 MG/DL (0.2-1.0); BLOOD UREA NITROGEN 16 MG/DL (7-18); CALCIUM LEVEL 9.4 MG/DL (8.8-10.2); CARBON DIOXIDE LEVEL 27 MEQ/L (21-32); CHLORIDE LEVEL 106 MEQ/L (98-107); CREATININE FOR GFR 1.09 MG/DL (0.70-1.30); GLOMERULAR FILTRATION RATE > 60.0 (>49); GLUCOSE, FASTING 192 MG/DL (70-100); MAGNESIUM LEVEL 1.4 MG/DL (1.8-2.4); MALB URINE SIEMENS 49.5 MG/L; MAU/CREAT RATIO 23.5 MCG/MG (0.0-30.0); POTASSIUM SERUM 4.4 MEQ/L (3.5-5.1); SODIUM LEVEL 139 MEQ/L (136-145); TOTAL PROTEIN 7.8 GM/DL (6.4-8.2)
== END ==
LOC: M LAB 09:03
PROVIDERS: ATTEND Hospitalist
DX: E83.42 Hypomagnesemia (principal); E11.9 Type 2 diabetes mellitus without complications

== ENCOUNTER → 2020-12-22 | Outpatient (CLI) | payer OTHER ==
[2020-12-22 11:43] LABS: BASO # 0.1 10^3/uL (0.0-0.2); BASO % 0.7 % (0.0-1.0); EOS # 0.1 10^3/uL (0.0-0.5); EOS % 1.8 % (0.0-3.0); HEMATOCRIT 36.4 % (42.0-52.0); HEMOGLOBIN 11.6 g/dl (13.5-17.5); LYMPH % 14.4 % (24.0-44.0); MEAN CORPUSCULAR HEMOGLOBIN 32.2 pg (27.0-33.0); MEAN CORPUSCULAR HGB CONC 31.9 g/dl (32.0-36.5); MEAN CORPUSCULAR VOLUME 101.1 fl (80.0-96.0); MONO # 0.6 10^3/uL (0.0-0.8); MONO % 8.2 % (2.0-8.0); NEUTROPHILS # 5.4 10^3/uL (1.5-8.5); NEUTROPHILS % 74.3 % (36.0-66.0); PLATELET COUNT, AUTOMATED 126 10^3/uL (150-450); WHITE BLOOD COUNT 7.2 10^3/uL (4.0-10.0)
[2020-12-22 12:13] LABS: ALBUMIN 3.5 GM/DL (3.2-5.2); ALT/SGPT 20 U/L (12-78); BILIRUBIN,TOTAL 0.5 MG/DL (0.2-1.0); BLOOD UREA NITROGEN 23 MG/DL (7-18); CALCIUM LEVEL 9.3 MG/DL (8.8-10.2); CARBON DIOXIDE LEVEL 25 MEQ/L (21-32); CHLORIDE LEVEL 103 MEQ/L (98-107); CREATININE FOR GFR 1.16 MG/DL (0.70-1.30); GLOMERULAR FILTRATION RATE > 60.0 (>49); GLUCOSE, FASTING 297 MG/DL (70-100); POTASSIUM SERUM 4.4 MEQ/L (3.5-5.1); SODIUM LEVEL 134 MEQ/L (136-145); TOTAL PROTEIN 7.8 GM/DL (6.4-8.2)
== END ==
LOC: M LAB 11:09
PROVIDERS: ATTEND Internal Medicine Hematology & Oncology
DX: C18.9 Malignant neoplasm of colon, unspecified (principal)

== ENCOUNTER → 2021-02-05 | Outpatient (REF) | payer MEDICARE, OTHER ==
[2021-02-05 12:18] LABS: HEMOGLOBIN A1c 10.1 %
[2021-02-05 12:33] LABS: MALB URINE SIEMENS 40.7 MG/L; MAU/CREAT RATIO 32.3 MCG/MG (0.0-30.0)
[2021-02-05 12:37] LABS: ALBUMIN 3.6 GM/DL (3.2-5.2); ALT/SGPT 56 U/L (12-78); BILIRUBIN,TOTAL 0.5 MG/DL (0.2-1.0); BLOOD UREA NITROGEN 22 MG/DL (7-18); CARBON DIOXIDE LEVEL 32 MEQ/L (21-32); CHLORIDE LEVEL 101 MEQ/L (98-107); CHOLESTEROL LEVEL 144 MG/DL (<200); CHOLESTEROL RISK RATIO 4.114 (<5); CREATININE FOR GFR 1.24 MG/DL (0.70-1.30); GLOMERULAR FILTRATION RATE > 60.0 (>49); GLUCOSE, FASTING 368 MG/DL (70-100); HDL CHOLESTEROL 35 MG/DL (>40); LDL CHOLESTEROL 68 MG/DL (<100); NON-HDL-C 109 MG/DL; POTASSIUM SERUM 4.8 MEQ/L (3.5-5.1); SODIUM LEVEL 133 MEQ/L (136-145); TOTAL PROTEIN 7.7 GM/DL (6.4-8.2); TRIGLYCERIDES LEVEL 206 MG/DL (<150)
== END ==
LOC: M SFHCPLAZ 07:55
DX: E11.9 Type 2 diabetes mellitus without complications (principal); I10 Essential (primary) hypertension

== ENCOUNTER → 2021-02-08 | Outpatient (CLI) | payer MEDICARE, MEDICAID ==
[~2021-02-08] MED LIST changes: +PROHANCE 279.3MG/ML 15ML VIAL ONE; +PROHANCE 279.3MG/ML 5ML VIAL ONE
--- NOTE | 2021-02-08 11:39 | REP ---
INDICATION: METASTATIC RECTAL CA W/ LIVER METS. COMPARISON: Comparison is made with MRI study of the abdomen from [facility] dated 28 November 2019. Comparison PET-CT images are from April 21, 2020.. TECHNIQUE: Axial and coronal imaging planes utilized. T1 and T2 weighted scans include spin echo, fast spin echo, gradient echo, and dynamically acquired sequential postcontrast images. Gadolinium enhancement dose is 19 mL of intravenous ProHance. FINDINGS: There are several hepatic cysts, the largest of which is in the left lobe measuring 4.9 cm. There also multiple small subcentimeter cysts. In addition, the posterior segment of the right lobe is showing evidence of peripheral pattern of biliary ductal dilation and some overall volume loss consistent with chronic biliary obstruction. There is a ill-defined mass in the central portion of the posterior segment the right lobe corresponding to the location of 1 of the metastases seen on PET-CT. This appears to be somewhat larger. There are 2 or 3 small 1 cm foci of peripherally enhancing low T1 isointense T2 signal intensity in the left lobe consistent with new metastatic lesions. There is a new lesion in the quadrate lobe measuring 2.7 cm in greatest diameter. Previously noted retroperitoneal adenopathy is again seen. The largest aortocaval lymph node is increased in size and 4.4 cm anteroposterior by 2.0 cm right to left by 3.7 cm cranial to caudal. There is a cyst slightly smaller aortocaval lymph node just distal to this. A left periaortic node is seen 1.9 cm in diameter increased in size from the time of the PET-CT. These lymph nodes show peripheral contrast enhancement. There is a new 1.1 cm right retrocrural lymph node. In addition, there is an oval-shaped paravertebral deposit showing peripheral contrast enhancement at the upper portion of the diaphragmatic this measures 2.5 cm in greatest diameter. This is new from the comparison PET-CT. There is a 1 cm enhancing lymph node in the epicardial fat to the right of midline on today's MRI images which is also new. There is no evidence of upper abdominal ascites. There is colonic diverticulosis. There are cortical cysts in the kidneys bilaterally including a complex cyst in the upper pole of the right kidney 2.1 cm in diameter and a midpole cyst on the left which measures 3.3 cm in greatest diameter. IMPRESSION: There is evidence of interval progression in aortocaval and periaortic adenopathy, retrocrural adenopathy, and intrahepatic disease. There is a right paravertebral deposit and a epicardial lymph node which is also a new finding. <Electronically signed by Abdi Castelan > 02/08/21 0310
== END ==
LOC: M PLAIMG 09:14
PROVIDERS: ATTEND Internal Medicine Hematology & Oncology
DX: C78.7 Secondary malignant neoplasm of liver and intrahepatic bile duct (principal); C20 Malignant neoplasm of rectum
CPT/HCPCS: 74183; A9576

== ENCOUNTER → 2021-02-10 | Outpatient (CLI) | payer MEDICARE, MEDICAID ==
[~2021-02-10] MED LIST changes: +GASTROGRAFIN SOLUTION 30ML (Q9963) ONE; +ISOVUE-370 76% 100ML VIAL ONE; -PROHANCE 279.3MG/ML 15ML VIAL ONE; -PROHANCE 279.3MG/ML 5ML VIAL ONE
--- NOTE | 2021-02-10 15:05 | REP ---
INDICATION: RECTAL CA W/ LIVER METS COMPARISON: None. TECHNIQUE: Standard helical technique after the intravenous administration of 100 cc Isovue 370. FINDINGS: There is no mediastinal or hilar adenopathy. Borderline mediastinal lymph nodes are seen in the subcarinal region. There are no pleural or pericardial effusions. Bone window technique throughout the exam shows the osseous structures to be within normal limits. There are spinal degenerative changes. Evaluation of the lung green shows numerous pulmonary nodules. The largest in the left lower lobe measures 1.8 cm. The largest in left upper lobe measures 1.6 cm. The largest in the right middle lobe measures 1.1 cm. The largest in the right upper lobe measures 7 mm. The largest in the right lower lobe measures 1.1 cm. There are numerous bilateral scattered smaller nodules. IMPRESSION: 1. Pulmonary metastatic disease as described above. 2. Borderline mediastinal lymph nodes as described above. <Electronically signed by Theodore Soria > 02/10/21 [id number]
--- NOTE | 2021-02-10 15:34 | REP ---
INDICATION: RECTAL CA W/ LIVER METS. COMPARISON: 10/19/2017 from an outside institution, MRI abdomen 02/08/2021, and CT component of the PET-CT from 04/21/2020 TECHNIQUE: Standard helical technique after the intravenous administration of 100 cc Isovue 370. FINDINGS: There is atrophy of the right lobe of the liver particularly posterior segment with concomitant biliary dilatation in a fashion seen on the prior MRI. There are 2 enhancing nodules in the posterior segment of the right lobe 1 measures approximately 3 cm and the other approximately 3.7 cm with possible numerous sub cm sized enhancing lesions in the atrophy portion of the liver as well. There is 1 enhancing lesion in the quadrate lobe of the liver which measures approximately 3.2 cm. The sub cm sized areas are too small for precise CT characterization. There are hepatic cysts status quo. The spleen, pancreas, adrenal glands, and kidneys are essentially stable. There are bilateral renal cysts status quo. There is retroperitoneal adenopathy increased from the prior outside contrast-enhanced CT and difficult to exactly compare to the none diagnostic CT portion of the prior PET-CT. The adenopathy was seen on the prior MRI but due to modality differences in exact comparison cannot be made. I suspect there has been no significant change. There is no significant change in appearance of the bowel loops or the mesenteries. There is colonic diverticulosis status quo. There is no free fluid or free air. Bone window technique throughout the examination shows chronic spinal degenerative changes status quo. IMPRESSION: 1. Liver metastatic disease and other chronic liver changes as described above. The enhancing lesion seen in the quadrate lobe was not present on the prior contrast enhanced CT of 10/19/2017, however, it was present on the prior MRI. 2. Adenopathy in the retroperitoneum as described above. 3. Stable renal cysts. 4. Colonic diverticulosis and other findings as described above. <Electronically signed by Theodore Soria > 02/10/21 [id number]
== END ==
LOC: M PLAIMG 11:00
PROVIDERS: ATTEND Internal Medicine Hematology & Oncology
DX: C18.9 Malignant neoplasm of colon, unspecified (principal); C78.7 Secondary malignant neoplasm of liver and intrahepatic bile duct; C78.00 Secondary malignant neoplasm of unspecified lung; K57.30 Diverticulosis of large intestine without perforation or abscess without bleeding; N28.1 Cyst of kidney, acquired
CPT/HCPCS: 71260; 74177; Q9963; Q9967

== ENCOUNTER 2021-02-18 17:08 | Emergency (ER) | payer OTHER ==
[~2021-02-18] VITALS: Ht 172.7 cm; Wt 91.7 kg
[~2021-02-18 17:08] MED LIST changes: -GASTROGRAFIN SOLUTION 30ML (Q9963) ONE; -ISOVUE-370 76% 100ML VIAL ONE; +SODIUM CHLORIDE 0.9% INJ 10 ML SYR IV SCH
[2021-02-18 18:39] LABS: VENOUS BASE EXCESS -0.4 (-2.0-2.0); VENOUS HCO3 24.6 MEQ/L (23.0-27.0); VENOUS O2 SATURATION 81.9 % (60.0-80.0); VENOUS PARTIAL PRESSURE CO2 41.8 mmHg (38.0-50.0); VENOUS PARTIAL PRESSURE O2 49.9 mmHg (30.0-50.0); VENOUS PH 7.388 UNITS (7.330-7.430); VENOUS STANDARD HCO3 23.8 MEQ/L; VENOUS TOTAL CO2 25.9 MEQ/L (24.0-28.0)
[2021-02-18 18:45] LABS: BASO % 0.6 % (0.0-1.0); EOS # 0.1 10^3/uL (0.0-0.5); HEMATOCRIT 36.9 % (42.0-52.0); HEMOGLOBIN 11.9 g/dl (13.5-17.5); LYMPH # 0.8 10^3/uL (1.5-5.0); MEAN CORPUSCULAR HEMOGLOBIN 29.8 pg (27.0-33.0); MEAN CORPUSCULAR HGB CONC 32.2 g/dl (32.0-36.5); MEAN CORPUSCULAR VOLUME 92.3 fl (80.0-96.0); MONO # 0.6 10^3/uL (0.0-0.8); MONO % 8.1 % (2.0-8.0); NEUTROPHILS # 5.4 10^3/uL (1.5-8.5); NEUTROPHILS % 78.1 % (36.0-66.0); PLATELET COUNT, AUTOMATED 134 10^3/uL (150-450); WHITE BLOOD COUNT 6.9 10^3/uL (4.0-10.0)
[2021-02-18 19:01] LABS: HEMOGLOBIN A1c 11.6 %
[2021-02-18 19:06] LABS: OSMOLALITY SERUM 305 MOSM/KG (280-301)
--- NOTE | 2021-02-18 19:08 | ECGEPIP ---
[facility] - ED Test Date: 2021-02-18 Pat Name: CHRISTIAN GONZALEZ Department: Room: - Gender: Male Box Person: LESLIE : 1950 Requested By: LESLIE FLANAGAN Order Number: [id number] Reading MD: Tabatha Piedra Measurements Intervals [place] Rate: 57 P: 25 OR: 208 QRS: 13 QRSD: 130 T: 21 QT: 428 QTc: 416 Interpretive Statements Sinus bradycardia Right bundle branch block decreased rate 10/13/20 Electronically Signed on 02-18-2021 19:08:11 EDT by Tabatha Piedra
[2021-02-18 19:14] LABS: ACETONE/KETONE 2.37 MG/DL (<2.81); ALBUMIN 3.3 GM/DL (3.2-5.2); ALT/SGPT 66 U/L (12-78); BILIRUBIN,DIRECT 0.2 MG/DL (0.0-0.2); BILIRUBIN,TOTAL 0.7 MG/DL (0.2-1.0); BLOOD UREA NITROGEN 24 MG/DL (7-18); CALCIUM LEVEL 9.4 MG/DL (8.8-10.2); CARBON DIOXIDE LEVEL 25 MEQ/L (21-32); CHLORIDE LEVEL 96 MEQ/L (98-107); CK-MB VALUE MASS < 1.0 NG/ML (<3.6); CPK CREATINE PHOSPHOKINASE 89 U/L (39-308); CREATININE FOR GFR 1.28 MG/DL (0.70-1.30); GLOMERULAR FILTRATION RATE 59.5 (>49); GLUCOSE, FASTING 540 MG/DL (70-100); LIPASE 114 U/L (73-393); MAGNESIUM LEVEL 2.2 MG/DL (1.8-2.4); MB/CK RELATIVE INDEX 1.12 (< OR =4); PHOSPHORUS LEVEL 4.3 MG/DL (2.5-4.9); POTASSIUM SERUM 5.4 MEQ/L (3.5-5.1); SODIUM LEVEL 127 MEQ/L (136-145); TOTAL PROTEIN 7.9 GM/DL (6.4-8.2); TROPONIN I < 0.02 NG/ML (< 0.10)
[2021-02-18] MEDS ORDERED: HumuLIN R (REGULAR) INSULIN (NovoLIN R) **100U/ML** PER UNIT IV ONE (19:25)
[2021-02-18 21:44] VITALS: BP 172/81
[2021-02-23] MEDS ORDERED: CAPE1TAB2 PO (16:49)
== END 2021-02-18 21:52 | disposition home or self-care (01) ==
LOC: M ED 17:08
DX: E11.65 Type 2 diabetes mellitus with hyperglycemia (principal); C22.9 Malignant neoplasm of liver, not specified as primary or secondary; C18.9 Malignant neoplasm of colon, unspecified; I10 Essential (primary) hypertension

== ENCOUNTER → 2021-04-19 | Outpatient (REF) | payer OTHER, MEDICARE, MEDICAID ==
[~2021-04-19] MED LIST changes: -MAGN400T3 PO; +MAGN400T33 PO; -SODIUM CHLORIDE 0.9% INJ 10 ML SYR IV SCH
[2021-04-19 12:12] LABS: BASO # 0.1 10^3/uL (0.0-0.2); BASO % 0.6 % (0.0-1.0); EOS # 0.1 10^3/uL (0.0-0.5); EOS % 1.5 % (0.0-3.0); HEMATOCRIT 34.8 % (42.0-52.0); HEMOGLOBIN 11.2 g/dl (13.5-17.5); LYMPH # 0.7 10^3/uL (1.5-5.0); LYMPH % 8.5 % (24.0-44.0); MEAN CORPUSCULAR HEMOGLOBIN 32.9 pg (27.0-33.0); MEAN CORPUSCULAR HGB CONC 32.2 g/dl (32.0-36.5); MEAN CORPUSCULAR VOLUME 102.4 fl (80.0-96.0); MONO # 0.7 10^3/uL (0.0-0.8); MONO % 8.4 % (2.0-8.0); NEUTROPHILS # 6.3 10^3/uL (1.5-8.5); NEUTROPHILS % 80.2 % (36.0-66.0); PLATELET COUNT, AUTOMATED 129 10^3/uL (150-450); WHITE BLOOD COUNT 7.9 10^3/uL (4.0-10.0)
[2021-04-19 12:44] LABS: ALBUMIN 3.2 GM/DL (3.2-5.2); ALT/SGPT 30 U/L (12-78); BILIRUBIN,TOTAL 0.8 MG/DL (0.2-1.0); BLOOD UREA NITROGEN 22 MG/DL (7-18); CALCIUM LEVEL 9.6 MG/DL (8.8-10.2); CARBON DIOXIDE LEVEL 28 MEQ/L (21-32); CHLORIDE LEVEL 105 MEQ/L (98-107); CREATININE FOR GFR 1.17 MG/DL (0.70-1.30); GLOMERULAR FILTRATION RATE > 60.0 (>49); GLUCOSE, FASTING 184 MG/DL (70-100); POTASSIUM SERUM 4.4 MEQ/L (3.5-5.1); SODIUM LEVEL 138 MEQ/L (136-145); TOTAL PROTEIN 7.2 GM/DL (6.4-8.2)
== END ==
LOC: M LABDRAWC 11:39
PROVIDERS: ATTEND Internal Medicine Medical Oncology
DX: C18.9 Malignant neoplasm of colon, unspecified (principal)

== ENCOUNTER → 2021-05-28 | Outpatient (REF) | payer MEDICARE, MEDICAID ==
[2021-05-28 12:14] LABS: HEMOGLOBIN A1c 6.1 %
== END ==
LOC: M SFHCCLAY 09:20
PROVIDERS: ATTEND Student in an Organized Health Care Education/Training Program
DX: E11.9 Type 2 diabetes mellitus without complications (principal)

== ENCOUNTER → 2021-05-28 | Outpatient (REF) | payer MEDICARE, MEDICAID ==
[2021-05-28 11:46] LABS: BASO # 0.1 10^3/uL (0.0-0.2); BASO % 0.7 % (0.0-1.0); EOS # 0.1 10^3/uL (0.0-0.5); HEMATOCRIT 26.5 % (42.0-52.0); HEMOGLOBIN 8.2 g/dl (13.5-17.5); LYMPH # 0.9 10^3/uL (1.5-5.0); LYMPH % 9.2 % (24.0-44.0); MEAN CORPUSCULAR HEMOGLOBIN 33.6 pg (27.0-33.0); MEAN CORPUSCULAR HGB CONC 30.9 g/dl (32.0-36.5); MEAN CORPUSCULAR VOLUME 108.6 fl (80.0-96.0); MONO # 1.3 10^3/uL (0.0-0.8); MONO % 13.2 % (2.0-8.0); NEUTROPHILS # 7.5 10^3/uL (1.5-8.5); NEUTROPHILS % 74.5 % (36.0-66.0); PLATELET COUNT, AUTOMATED 152 10^3/uL (150-450); RED BLOOD COUNT 2.44 10^6/uL (4.30-6.10)
[2021-05-28 12:12] LABS: ALBUMIN 2.7 GM/DL (3.2-5.2); BILIRUBIN,TOTAL 0.6 MG/DL (0.2-1.0); CALCIUM LEVEL 9.4 MG/DL (8.8-10.2); CREATININE FOR GFR 1.53 MG/DL (0.70-1.30); GLOMERULAR FILTRATION RATE 48.3 (>49); POTASSIUM SERUM 5.2 MEQ/L (3.5-5.1); TOTAL PROTEIN 6.6 GM/DL (6.4-8.2)
== END ==
LOC: M LABDRAWC 11:23
PROVIDERS: ATTEND Internal Medicine Medical Oncology
DX: C18.9 Malignant neoplasm of colon, unspecified (principal); C78.7 Secondary malignant neoplasm of liver and intrahepatic bile duct; D61.818 Other pancytopenia; E11.9 Type 2 diabetes mellitus without complications

== ENCOUNTER 2021-06-11 11:25 | Inpatient (IN) | payer OTHER ==
[~2021-06-11] VITALS: Ht 167.6 cm; Wt 89.0 kg
[2021-06-11] VITALS (10 sets, daily range): BP systolic 98–126; BP diastolic 55–65
[~2021-06-11 11:25] MED LIST changes: +METF10004 PO
[2021-06-11] MEDS ORDERED: NS 500 ML IV ONE (11:50)
[2021-06-11 12:08] LABS: BASO # 0.1 10^3/uL (0.0-0.2); BASO % 0.7 % (0.0-1.0); EOS # 0.1 10^3/uL (0.0-0.5); HEMATOCRIT 22.7 % (42.0-52.0); LYMPH # 0.6 10^3/uL (1.5-5.0); LYMPH % 6.1 % (24.0-44.0); MEAN CORPUSCULAR HEMOGLOBIN 30.5 pg (27.0-33.0); MEAN CORPUSCULAR HGB CONC 30.4 g/dl (32.0-36.5); MEAN CORPUSCULAR VOLUME 100.4 fl (80.0-96.0); MONO % 11.3 % (2.0-8.0); NEUTROPHILS # 7.2 10^3/uL (1.5-8.5); NEUTROPHILS % 80.1 % (36.0-66.0); PLATELET COUNT, AUTOMATED 180 10^3/uL (150-450); RED BLOOD COUNT 2.26 10^6/uL (4.30-6.10)
[2021-06-11 12:11] LABS: HEMOGLOBIN 6.9 g/dl (13.5-17.5)
[2021-06-11] MEDS ORDERED: ATEN25TA PO (12:14)
[2021-06-11] MEDS ORDERED: ATOR80TA59 PO (12:14)
[2021-06-11 12:19] LABS: INR 1.1; PROTHROMBIN TIME 14.6 SECONDS (12.7-14.5)
[2021-06-11 12:49] LABS: RSV AMPLIFICATION NEGATIVE (NEGATIVE)
[2021-06-11 13:04] LABS: ALBUMIN 2.6 GM/DL (3.2-5.2); BILIRUBIN,DIRECT 1.5 MG/DL (0.0-0.2); BILIRUBIN,TOTAL 2.3 MG/DL (0.2-1.0); CALCIUM LEVEL 8.6 MG/DL (8.8-10.2); CREATININE FOR GFR 1.67 MG/DL (0.70-1.30); GLOMERULAR FILTRATION RATE 43.6 (>49); POTASSIUM SERUM 4.7 MEQ/L (3.5-5.1); TOTAL PROTEIN 6.6 GM/DL (6.4-8.2)
[2021-06-11] MEDS ORDERED: AMLO1TAB25 PO (13:57)
[2021-06-11] MEDS ORDERED: METF-877 PO (13:57)
[2021-06-11] MEDS ORDERED: HOME MED LIST COMPLETE! XX SCH (14:00)
--- NOTE | 2021-06-11 16:55 | HPEPDOC ---
General Date of Admission Jun 11, 2021 at 14:41 Date of Service: Jun 11, 2021 Chief Complaint The patient is a 71-year-old male admitted with a reason for visit of Gastrointestinal Bleeding. History of Present Illness 71-year-old male with history of metastatic rectal adenocarcinoma status post e xcision of solitary hepatic metastasis status post her radiation therapy to the rectum on chemotherapy currently only on capecitabine, oxaliplatin was stopped several months ago because he had a neurological event after oxaliplatin treatment which was felt may been related to a that presents to the hospital with 4 days history of bright red blood per rectum along with some clots off and on along with dizziness and lightheadedness since yesterday. Patient reports that he has been having seeing blood in his stools for the past 1 month he would have 1 or 2 bouts of bloody bowel movement and then would resolve but this time it has been going on for 4 days without any resolution then he started feeling dizzy lightheaded so he came to the emergency room. He denies any abdominal pain any nausea or vomiting. He also reported that his capecitabine was stopped in the early part of May because of abnormal renal function with plan to reassess in a few weeks to see if there is any improvement in renal function before restarting. On arrival to the ED patient was noted to have a hemoglobin of 6.9. He was also noted to have a creatinine of 1.67 he was ordered 2 units of PRBC. He was admitted to the hospital for GI bleed with symptomatic acute blood loss anemia and JANELLE Home Medications Scheduled Amlodipine Besylate (Amlodipine Besylate) 10 Mg Tablet, 10 MG PO DAILY, (Reported) Aspirin (Aspirin EC) 81 Mg Tablet.dr, 81 MG PO DAILY, (Reported) Atenolol (Atenolol) 25 Mg Tablet, 75 MG PO DAILY, (Reported) Atorvastatin Calcium (Atorvastatin Calcium) 80 Mg Tablet, 80 MG PO DAILY, (Reported) Glipizide (Glipizide) 10 Mg Tablet, 10 MG PO BID, (Reported) Lidocaine (Lidocaine) 15 Gm Cream..g., 1 APLCT TOP ASDIRECTED Apply to [facility] 30 minutes prior to accessing Lisinopril/Hydrochlorothiazide (Lisinopril-Hctz 20-12.5 mg Tab) 1 Each Tablet, 1 TAB PO DAILY, (Reported) Loperamide HCl (Loperamide) 2 Mg Capsule, 2 MG PO ASDIRECTED one capsule after each bowel movement to a maximum 6 daily Magnesium Oxide (Magnesium Oxide) 400 Mg Tablet, 400 MG PO DAILY, (Reported) Metformin HCl (Metformin HCl) 1,000 Mg Tablet, 1,000 MG PO BID, (Reported) Omeprazole (Omeprazole) 20 Mg Capsule.dr, 20 MG PO DAILY, (Reported) Potassium Chloride (K-Tab ER) 20 Meq Tablet.er, 1 TAB PO DAILY for low potassium One tab po daily after food Scheduled PRN Ondansetron HCl (Ondansetron HCl) 8 Mg Tablet, 8 MG PO Q8H PRN for NAUSEA OR VOMITING Prochlorperazine Maleate (Prochlorperazine Maleate) 10 Mg Tablet, 10 MG PO Q6H PRN for NAUSEA Allergies Coded Allergies: No Known Allergies (Unverified , 05/08/19) Past Medical History Medical History Rectal Adenocarcinoma (Dx 10/2017; on chemotherapy; s/p radidation; s/p resection of solitary liver metastasis) HTN NIDDM2 DLP GERD Surgical History Resection of liver mass Chemo-Port placement Appendectomy, 1966 Family History Paternal grandmother had breast cancer Brother throat cancer Sister breast cancer Social History * Smoker: former Smoker Alcohol: Denies Drugs: denies A-FIB/CHADSVASC A-FIB History Current/History of A-Fib/PAF?: No Review of Systems Constitutional: Reports: Fatigue; Denies: Chills, Fever, Night Sweats Eyes: Denies: Pain, Vision change ENT: Denies: Head Aches, Ear Pain, Dysphagia Skin: Denies: Rash, Lesions, Breakdown Pulmonary: Denies: Dyspnea, Cough Cardiovascular: Reports: Lt Headedness; Denies: Chest Pain, Palpitations, Orthopnea, Paroxysmal Noc. Dyspnea Gastrointestinal: Reports: Hematochezia; Denies: Nausea, Vomiting, Abdominal Pain, Diarrhea Genitourinary: Denies: Dysuria, Frequency, Incontinence, Retention Hematologic: Denies: Bruising, Bleeding Excessively Neurological: Denies: Weakness, Numbness, Change in speech, Confusion Physical Examination General Exam: Positive: Alert, Cooperative, No Acute Distress Eye Exam: Positive: PERRLA, Conjunctiva & lids normal, EOMI; Negative: Sclera icteric ENT Exam: Positive: Atraumatic, Mucous membr. moist/pink, Pharynx Normal Neck Exam: Positive: Supple; Negative: JVD, thyromegaly Chest Exam: Positive: Clear to auscultation, Normal air movement Heart Exam: Positive: Rate Normal, Regular Rhythm, Normal S1, Normal S2; Negative: Murmurs, Rubs Abdomen Exam: Positive: Normal bowel sounds, Soft; Negative: Tenderness Extremity Exam: Negative: Clubbing, Cyanosis, Edema Neuro Exam: Positive: Normal Gait, Normal Speech, Cranial Nerves 3-12 NL, Reflexes 2+ Vital Signs Vital Signs Date Time Temp Pulse Resp B/P (MAP) Pulse Ox O2 Delivery O2 Flow Rate FiO2 06/11/21 16:26 97.2 63 17 101/55 Room Air 99 06/11/21 15:15 98 Laboratory Data Labs 24H Laboratory Tests 2 06/11/21 11:45: Immature Granulocyte % (Auto) 0.8, Neutrophils (%) (Auto) 80.1H, Lymphocytes (%) (Auto) 6.1L, Monocytes (%) (Auto) 11.3H, Eosinophils (%) (Auto) 1.0, Basophils (%) (Auto) 0.7, Neutrophils # (Auto) 7.2, Lymphocytes # (Auto) 0.6L, Monocytes # (Auto) 1.0H, Eosinophils # (Auto) 0.1, Basophils # (Auto) 0.1, Nucleated Red Blood Cells % (auto) 0.0, Prothrombin Time 14.6H, Prothromb Time International Ratio 1.10, Anion Gap 6L, Glomerular Filtration Rate 43.6L, Calcium Level 8.6L, Total Bilirubin 2.3H, Direct Bilirubin 1.5H, Aspartate Amino Transf (AST/SGOT) 181H, Alanine Aminotransferase (ALT/SGPT) 76, Alkaline Phosphatase 536H, Total Protein 6.6, Albumin 2.6L, Albumin/Globulin Ratio 0.7, Lipase 149 06/11/21 12:06: Coronavirus (COVID-19)(PCR) NEGATIVE, Influenza Type A (RT-PCR) NEGATIVE, Influenza Type B (RT-PCR) NEGATIVE, Respiratory Syncytial Virus (PCR) NEGATIVE CBC/BMP Laboratory Tests 06/11/21 11:45 Assessment/Plan 71-year-old male with history of metastatic rectal adenocarcinoma status post excision of solitary hepatic metastasis status post her radiation therapy to the rectum on chemotherapy currently only on capecitabine, oxaliplatin was stopped several months ago because he had a neurological event after oxaliplatin treatme nt which was felt may been related to a that presents to the hospital with 4 days history of bright red blood per rectum along with some clots off and on along with dizziness and lightheadedness since yesterday. Patient reports that he has been having seeing blood in his stools for the past 1 month he would have 1 or 2 bouts of bloody bowel movement and then would resolve but this time it has been going on for 4 days without any resolution then he started feeling dizzy lightheaded so he came to the emergency room. He denies any abdominal pain any nausea or vomiting. He also reported that his capecitabine was stopped in the early part of May because of abnormal renal function with plan to reassess in a few weeks to see if there is any improvement in renal function before restarting. On arrival to the ED patient was noted to have a hemoglobin of 6.9. He was also noted to have a creatinine of 1.67 he was ordered 2 units of PRBC. He was admitted to the hospital for GI bleed with symptomatic acute blood loss anemia and JANELLE. GI bleed with acute blood loss anemia This could be either due to radiation proctitis or bleeding from the malignant mass Will transfuse PRBC and 2 units and then monitor H&H and transfuse further if needed Consulted surgery We will keep n.p.o. for now Will get CT abdomen and pelvis JANELLE Will get CT abdomen and pelvis to rule out any obstruction We will hold lisinopril and hydrochlorothiazide Hypertension Blood pressure low normal Will hold amlodipine, lisinopril, hydrochlorothiazide and atenolol Diabetes We will hold Metformin and glipizide we will place on lispro as per sliding scale Hyperlipidemia Continue statin Plan / VTE VTE Prophylaxis Ordered?: Yes Sravani Siddiqui MD Jun 11, 2021 16:55
[2021-06-11] MEDS: PANTOPRAZOLE 40MG VIAL (C9113 PER 1) IV SCH (17:17)
[2021-06-11] MEDS: OCTREOTIDE ACETATE 100MCG/ML VIAL **IV ADMINISTRATION ONLY IV SCH (17:17)
--- NOTE | 2021-06-11 17:30 | REPVR ---
PROCEDURE INFORMATION: Exam: CT Abdomen And Pelvis Without Contrast Exam date and time: 06/11/2021 4:58 PM Age: 71 years old Clinical indication: Other: Antonio, gib TECHNIQUE: Imaging protocol: Computed tomography of the abdomen and pelvis without contrast. Radiation optimization: All CT scans at this facility use at least one of these dose optimization techniques: automated exposure control; mA and/or kV adjustment per patient size (includes targeted exams where dose is matched to clinical indication); or iterative reconstruction. COMPARISON: CT ABD PELVIS WITH CONTRAST 02/10/2021 11:39 AM FINDINGS: Lungs: Multiple bilateral lower lung zone pulmonary nodules with interval increase in size; example, an anterior left pulmonary basilar previous 15 mm nodule measures 23.5 mm. Liver: Interval increase in hepatic caudate lobe mass, measuring 6.3 cm, previously 4.0 cm. Atrophic posterior right hepatic lobe with dystrophic calcifications. A posterior right hepatic lobe mass in the involved segment was previously 3.1 cm, now approximately 4.1 cm. Exophytic mass of the hepatic caudate lobe measuring 4.6 cm, previously 2.9 cm. Interval mild increase in right lobe hepatic intrahepatic biliary ductal dilatation. Hepatic benign cysts, largest in the left lobe measuring 5.4 cm. Gallbladder and bile ducts: See "Liver" finding. Pancreas: Normal. No ductal dilation. Spleen: The spleen is enlarged measuring 18.6 cm longitudinally. Adrenal glands: Right adrenal nodule, previously 10.8 mm common L 16.7 mm Kidneys and ureters: Left renal benign cysts, largest 3.2 cm. Stomach and bowel: Moderate rectal wall thickening, increased. Pancolonic diverticula are present without evidence of diverticulitis. Appendix: No evidence of appendicitis. Intraperitoneal space: Mild lateral perihepatic peritoneal fluid. No pneumoperitoneum. Vasculature: Marked aortic atherosclerotic calcification without aneurysm. The iliac arteries show marked bilateral atherosclerotic calcifications without evidence of aneurysm. Lymph nodes: Upper infrarenal aortocaval lymph nodes, largest measuring 2.3 cm short axis, stable. Left infrarenal para-aortic lymph nodes, some stable, 1 increased from 5.2 mm short axis, currently 11.1 mm short axis. Urinary bladder: Unremarkable as visualized. Reproductive: The prostate gland demonstrates nonspecific parenchymal calcifications. Bones/joints: Bilateral lower lumbar facet primary osteoarthritis. Lumbar spine vertebral body marginal osteophytes are noted at multiple levels. No destructive bony process identified. No destructive bony process identified. Soft tissues: Unremarkable. IMPRESSION: 1. Moderate rectal wall thickening, increased. Neoplasia versus proctitis. Clinical correlation to determine the specific etiology is recommended. 2. Interval mild increase in right lobe hepatic intrahepatic biliary ductal dilatation. 3. Interval enlargement of multiple hepatic masses. 4. Interval increase in left para-aortic lymphadenopathy. 5. Upper infrarenal aortocaval lymph nodes, stable. 6. Mild lateral perihepatic peritoneal fluid. 7. Diverticulosis. 8. Mild splenomegaly. 9. Hepatic benign cysts. No follow-up imaging is recommended. 10. Left renal benign cysts. No follow-up imaging is recommended. 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 12. Progression of pulmonary metastatic disease. Fleischner Society recommendations not given due to conspicuous neoplasia. COMMENTS: 1. Consistent with the [employer]'s Incidental Findings Committee white paper (J Am Rani Radiol 2017): For any incidental adrenal lesion greater than 1 cm but less than 4 cm classified in this report as benign, likely benign, or containing fat (including classification as an adenoma or myelolipoma), no follow-up imaging is recommended per consensus recommendations based on imaging criteria. Further lab evaluation could be pursued if warranted based on clinical findings. 2. Consistent with the [employer]'s Incidental Findings Committee white paper (J Am Rani Radiol 2018): Any incidental renal lesion less than 1 cm or classified as too small to characterize, or any incidental cystic renal lesion characterized as simple-appearing, is likely benign. No follow-up imaging is recommended for these lesions per consensus recommendations based on imaging criteria. Electronically signed by: David Haley On 06/11/2021 17:29:55 PM
[2021-06-11 21:47] LABS: HEMATOCRIT 26.5 % (42.0-52.0); HEMOGLOBIN 8.2 g/dl (13.5-17.5)
--- NOTE | 2021-06-11 21:49 | CR ---
CONSULTATION DATE: 06/11/2021 BRIEF HISTORY OF PRESENT ILLNESS: The patient is a 71-year-old gentleman who presents with lower GI bleed with hematochezia and has had a 4-day history of rectal bleeding. He was seen last week in the oncology clinic for his metastatic colon cancer to the liver. He has been on chemotherapy for this. His last dose was approximately 3 weeks ago. Now is having entertained whether he will undergo a combined resection of a rectal primary as well as a few lesions in the liver at the same time. He has not had any problems with bright red blood per rectum. He has not had any problems with radiation proctitis since his radiation to his pelvis has continued elevated CEA levels, but instead of being in the 300-400 range, they are down to 30. The patient did have a time period where his CEA level was within normal limits. In any case, he is here for additional recommendations concerning this rectal bleeding. PAST MEDICAL HISTORY: The patient's past medical history is significant for: 1. History of external beam radiation to rectal cancer. 2. History of metastatic cancer to the liver. 3. History of hypertension. 4. Hypercholesterolemia. 5. GE reflux. 6. Diabetes mellitus. 7. History of neuropathy. 8. Hyperlipidemia. PAST SURGICAL HISTORY: The patient's past surgical history is significant for previous appendectomy. MEDICATIONS: 1. Capecitabine. 2. Amlodipine. 3. K-dur tabs. 4. Loperamide. 5. Zofran. 6. Lidocaine Cream. 7. Vitamin D. 8. Metformin. 9. Aspirin. 10. Atenolol. 11. Lisinopril. 12. Hydrochlorothiazide. 13. Simvastatin. 14. Omeprazole. 15. Magnesium Oxide. 16. Glipizide. PHYSICAL EXAMINATION: GENERAL APPEARANCE: A 69-year-old male who looks stated age. HEENT: Unremarkable. NECK: Supple without adenopathy. LUNGS: Clear. HEART: Regular. ABDOMEN: Soft, nontender, nondistended. No guarding, no rebound, no peritoneal signs are appreciated. EXTREMITIES: Warm and well perfused. IMPRESSION AND PLAN: The patient has bright red blood per rectum of undetermined etiology, although possibly secondary to his cancer, possibly related to the cancer necrosis, also possibly related to diverticulosis, possibly related to radiation proctitis, as the most likely etiology. At this point my recommendation is that he stay n.p.o., IV fluids and supportive care, and we will see how his hematocrit does over the ensuing 12-24 hours and depending on his amount of bleeding, if he has significant bleeding or ongoing bleeding, then proceeding with a colonoscopy is not unreasonable although results are very poor typically unless we can get a good bowel prep, and that may be difficult with the GI bleeding that is occurring.
--- NOTE | 2021-06-11 22:09 | ECGEPIP ---
[facility] - ED Test Date: 2021-06-11 Pat Name: CHRISTIAN GONZALEZ Department: Room: - Gender: Male Sanitation Director: Jaleesa SARGENT : 1950 Requested By: Tabatha Piedra Order Number: [id number] Reading MD: Alberto Castillo Measurements Intervals [place] Rate: 68 P: -1 KS: 190 QRS: 13 QRSD: 122 T: -5 QT: 418 QTc: 444 Interpretive Statements Normal sinus rhythm Right bundle branch block Similar to tracing done 02-18-21 Electronically Signed on 06-11-2021 22:09:06 EST by Alberto Castillo
[2021-06-11 23:13] LABS: HEMATOCRIT 26.5 % (42.0-52.0); HEMOGLOBIN 8.3 g/dl (13.5-17.5)
[2021-06-12] VITALS (10 sets, daily range): BP systolic 70–134; BP diastolic 55–90
[2021-06-12] MEDS: OCTREOTIDE ACETATE 100MCG/ML VIAL **IV ADMINISTRATION ONLY IV SCH ×2 (01:10→08:59)
[2021-06-12] MEDS: PANTOPRAZOLE 40MG VIAL (C9113 PER 1) IV SCH ×2 (04:34→17:54)
[2021-06-12 06:33] LABS: BASO % 0.5 % (0.0-1.0); EOS % 0.6 % (0.0-3.0); HEMATOCRIT 26.5 % (42.0-52.0); HEMOGLOBIN 8.3 g/dl (13.5-17.5); LYMPH # 0.4 10^3/uL (1.5-5.0); LYMPH % 7.1 % (24.0-44.0); MEAN CORPUSCULAR HEMOGLOBIN 30.4 pg (27.0-33.0); MEAN CORPUSCULAR HGB CONC 31.3 g/dl (32.0-36.5); MEAN CORPUSCULAR VOLUME 97.1 fl (80.0-96.0); MONO # 0.7 10^3/uL (0.0-0.8); MONO % 11.7 % (2.0-8.0); NEUTROPHILS # 4.9 10^3/uL (1.5-8.5); NEUTROPHILS % 79.3 % (36.0-66.0); PLATELET COUNT, AUTOMATED 136 10^3/uL (150-450); RED BLOOD COUNT 2.73 10^6/uL (4.30-6.10); WHITE BLOOD COUNT 6.2 10^3/uL (4.0-10.0)
[2021-06-12 06:53] LABS: CALCIUM LEVEL 8.5 MG/DL (8.8-10.2); CREATININE FOR GFR 1.63 MG/DL (0.70-1.30); GLOMERULAR FILTRATION RATE 44.9 (>49); POTASSIUM SERUM 4.6 MEQ/L (3.5-5.1)
[2021-06-12] MEDS ORDERED: D5W/0.9% SODIUM CHLORIDE 1,000 ML IV SCH ×2 (07:50→20:10)
[2021-06-12] MEDS: DOCUSATE SODIUM 100MG CAPSULE PO SCH ×2 (09:00→20:32)
--- NOTE | 2021-06-12 11:05 | IPNPDOC ---
Subjective Date Seen The patient was seen on 06/12/21. Subjective Chief Complaint/HPI No acute events overnight. No bleeding per rectum. No abdominal pain. Objective Physical Examination General Exam: Positive: Alert, Cooperative, No Acute Distress Eye Exam: Positive: PERRLA, Conjunctiva & lids normal, EOMI; Negative: Sclera icteric ENT Exam: Positive: Atraumatic, Mucous membr. moist/pink, Pharynx Normal Neck Exam: Positive: Supple; Negative: JVD, thyromegaly Chest Exam: Positive: Clear to auscultation, Normal air movement Heart Exam: Positive: Rate Normal, Regular Rhythm, Normal S1, Normal S2; Negative: Murmurs, Rubs Abdomen Exam: Positive: Normal bowel sounds, Soft; Negative: Tenderness Extremity Exam: Negative: Clubbing, Cyanosis, Edema Neuro Exam: Positive: Normal Gait, Normal Speech, Cranial Nerves 3-12 NL, Reflexes 2+ Assessment /Plan Assessment 71-year-old male with history of metastatic rectal adenocarcinoma status post excision of solitary hepatic metastasis status post her radiation therapy to the rectum on chemotherapy currently only on capecitabine, oxaliplatin was stopped several months ago because he had a neurological event after oxaliplatin treatment which was felt may been related to a that presents to the hospital with 4 days history of bright red blood per rectum along with some clots off and on along with dizziness and lightheadedness since yesterday. Patient reports that he has been having seeing blood in his stools for the past 1 month he would have 1 or 2 bouts of bloody bowel movement and then would resolve but this time it has been going on for 4 days without any resolution then he started feeling dizzy lightheaded so he came to the emergency room. He denies any abdominal pain any nausea or vomiting. He also reported that his capecitabine was stopped in the early part of May because of abnormal renal function with plan to reassess in a few weeks to see if there is any improvement in renal function before restarting. On arrival to the ED patient was noted to have a hemoglobin of 6.9. He was also noted to have a creatinine of 1.67 he was ordered 2 units of PRBC. He was admitted to the hospital for GI bleed with symptomatic acute blood loss anemia and JANELLE. GI bleed with acute blood loss anemia This could be either due to radiation proctitis or bleeding from the malignant mass received 2 units of PRBC. hh responded appropriately and is stable at this time. JANELLE No obstruction seen in CT abdomen We will hold lisinopril and hydrochlorothiazide Metastatic Rectal cancer with mets to liver and lung. Has progression of intrahepatic biliary dilatation. CT abd and pelvis shows progression of metastasis in liver and lungs Hypertension Blood pressure low normal Will hold amlodipine, lisinopril, hydrochlorothiazide and atenolol Diabetes We will hold Metformin and glipizide we will place on lispro as per sliding scale when eating at present he is NPO. Hyperlipidemia Continue statin Plan/VTE VTE Prophylaxis Ordered?: Yes VS, I&O, 24H, Fishbone Vital Signs/I&O Vital Signs Date Time Temp Pulse Resp B/P (MAP) Pulse Ox O2 Delivery O2 Flow Rate FiO2 06/12/21 04:00 98.4 68 18 105/60 (75) 97 Room Air 06/11/21 16:26 99 I&O- Last 24 Hours up to 6 AM 06/12/21 06:00 Intake Total 1360 ml Balance 1360 ml Laboratory Data 24H LABS Laboratory Tests 2 06/11/21 11:45: Immature Granulocyte % (Auto) 0.8, Neutrophils (%) (Auto) 80.1H, Lymphocytes (%) (Auto) 6.1L, Monocytes (%) (Auto) 11.3H, Eosinophils (%) (Auto) 1.0, Basophils (%) (Auto) 0.7, Neutrophils # (Auto) 7.2, Lymphocytes # (Auto) 0.6L, Monocytes # (Auto) 1.0H, Eosinophils # (Auto) 0.1, Basophils # (Auto) 0.1, Nucleated Red Blood Cells % (auto) 0.0, Prothrombin Time 14.6H, Prothromb Time International Ratio 1.10, Anion Gap 6L, Glomerular Filtration Rate 43.6L, Calcium Level 8.6L, Total Bilirubin 2.3H, Direct Bilirubin 1.5H, Aspartate Amino Transf (AST/SGOT) 181H, Alanine Aminotransferase (ALT/SGPT) 76, Alkaline Phosphatase 536H, Total Protein 6.6, Albumin 2.6L, Albumin/Globulin Ratio 0.7, Lipase 149 06/11/21 12:06: Coronavirus (COVID-19)(PCR) NEGATIVE, Influenza Type A (RT-PCR) NEGATIVE, Influ garo Type B (RT-PCR) NEGATIVE, Respiratory Syncytial Virus (PCR) NEGATIVE 06/12/21 05:32: Immature Granulocyte % (Auto) 0.8, Neutrophils (%) (Auto) 79.3H, Lymphocytes (%) (Auto) 7.1L, Monocytes (%) (Auto) 11.7H, Eosinophils (%) (Auto) 0.6, Basophils (%) (Auto) 0.5, Neutrophils # (Auto) 4.9, Lymphocytes # (Auto) 0.4L, Monocytes # (Auto) 0.7, Eosinophils # (Auto) 0.0, Basophils # (Auto) 0.0, Nucleated Red Blood Cells % (auto) 0.0, Anion Gap 9, Glomerular Filtration Rate 44.9L, Calcium Level 8.5L CBC/BMP Laboratory Tests 06/11/21 11:45 06/11/21 21:30 06/11/21 22:53 06/12/21 05:32 Sravani Siddiqui MD Jun 12, 2021 07:52
[2021-06-12 13:58] LABS: HEMATOCRIT 35.6 % (42.0-52.0)
[2021-06-12 16:48] LABS: HEMATOCRIT 30.8 % (42.0-52.0); HEMOGLOBIN 9.8 g/dl (13.5-17.5)
--- NOTE | 2021-06-12 18:25 | IPN ---
PROGRESS NOTE DATE: 06/12/2021 SUBJECTIVE: The patient states he is not having any further rectal bleeding overnight, has not had a bowel movement since yesterday, has been afebrile and overall doing well. Without fevers, without chills. His hematocrit has been stable. OBJECTIVE: On his physical exam, his abdomen is soft, nontender, nondistended. IMPRESSION/PLAN: The patient had a lower GI bleed of undetermined etiology. Obviously this may be associated with the rectal cancer that he had, possibly associated with radiation proctitis, hemorrhoids, diverticulosis. All of these are possibilities but given that he is stabilized/stopped bleeding at this time, my recommendation is to advance his diet as tolerated. He can follow up with his hospital chaplain postoperatively and undergo a repeat colonoscopy for which I think he states that he has this possibly scheduled prior to having his operative intervention for his metastatic cancer and possible bowel resection at the same time.
[2021-06-12] MEDS ORDERED: NS 1,000 ML IV SCH (19:55)
[2021-06-12] MEDS ORDERED: LORazepam 2 MG/ML VIAL IV PRN (21:25)
[2021-06-12 22:02] LABS: HEMATOCRIT 29.7 % (42.0-52.0); HEMOGLOBIN 9.4 g/dl (13.5-17.5)
[2021-06-13] MEDS: PANTOPRAZOLE 40MG VIAL (C9113 PER 1) IV SCH ×2 (04:19→17:44)
[2021-06-13 06:00] VITALS: BP 117/67
[2021-06-13 06:49] LABS: BASO % 0.5 % (0.0-1.0); EOS % 0.5 % (0.0-3.0); HEMATOCRIT 27.3 % (42.0-52.0); HEMOGLOBIN 8.8 g/dl (13.5-17.5); LYMPH # 0.4 10^3/uL (1.5-5.0); LYMPH % 6.8 % (24.0-44.0); MEAN CORPUSCULAR HEMOGLOBIN 30.4 pg (27.0-33.0); MEAN CORPUSCULAR HGB CONC 32.2 g/dl (32.0-36.5); MEAN CORPUSCULAR VOLUME 94.5 fl (80.0-96.0); MONO # 0.8 10^3/uL (0.0-0.8); MONO % 12.9 % (2.0-8.0); NEUTROPHILS # 4.8 10^3/uL (1.5-8.5); NEUTROPHILS % 78.8 % (36.0-66.0); PLATELET COUNT, AUTOMATED 134 10^3/uL (150-450); RED BLOOD COUNT 2.89 10^6/uL (4.30-6.10); WHITE BLOOD COUNT 6.1 10^3/uL (4.0-10.0)
[2021-06-13 07:16] LABS: CALCIUM LEVEL 8.3 MG/DL (8.8-10.2); CREATININE FOR GFR 1.5 MG/DL (0.70-1.30); GLOMERULAR FILTRATION RATE 49.4 (>49); POTASSIUM SERUM 4.3 MEQ/L (3.5-5.1)
[2021-06-13] MEDS: DOCUSATE SODIUM 100MG CAPSULE PO SCH ×2 (07:55→20:06)
[2021-06-13] MEDS ORDERED: DEXTROSE 50% 50 ML SYRINGE IV PRN (08:20)
[2021-06-13] MEDS ORDERED: GLUCAGON INJ 1MG VIAL SC PRN (08:20)
[2021-06-13] MEDS ORDERED: GLUCOSE 4GM CHEW TABLET PO PRN (08:20)
[2021-06-13] MEDS: HumaLOG INSULIN (NovoLOG) PER UNIT SC SCH ×4 (08:43→21:00)
[2021-06-13] MEDS: glipiZIDE (GLUCOTROL) 5 MG TAB PO SCH ×2 (08:43→17:44)
[2021-06-13] MEDS ORDERED: MOM 30ML SUSPENSION UDC PO ONE (10:00)
--- NOTE | 2021-06-13 11:16 | IPN ---
PROGRESS NOTE DATE: 06/13/2021 SUBJECTIVE: The patient had recurrent rectal bleeding overnight and has had no nausea, no vomiting and this is bright red blood per rectum. His hematocrit is slightly decreased this morning. OBJECTIVE: Abdomen is soft, nontender, non-distended. IMPRESSION/PLAN: The patient has recurrent GI bleeding, most likely lower GI. Given his recurrence of the bleeding I will restart the Octreotide. Will plan on giving him a bowel prep and plan on colonoscopy tomorrow. The patient agrees with this. I anticipate with decreasing his diet to clear liquid diet and NPO overnight that will have some decreased rectal bleeding associated with this.
--- NOTE | 2021-06-13 11:31 | IPNPDOC ---
Subjective Date Seen The patient was seen on 06/13/21. Subjective Chief Complaint/HPI Has been been rectal bleeding several times overnight. No abdominal pain, no dizziness or light headedness. Objective Physical Examination General Exam: Positive: Alert, Cooperative, No Acute Distress Eye Exam: Positive: PERRLA, Conjunctiva & lids normal, EOMI; Negative: Sclera icteric ENT Exam: Positive: Atraumatic, Mucous membr. moist/pink, Pharynx Normal Neck Exam: Positive: Supple; Negative: JVD, thyromegaly Chest Exam: Positive: Clear to auscultation, Normal air movement Heart Exam: Positive: Rate Normal, Regular Rhythm, Normal S1, Normal S2; Negative: Murmurs, Rubs Abdomen Exam: Positive: Normal bowel sounds, Soft; Negative: Tenderness Extremity Exam: Negative: Clubbing, Cyanosis, Edema Neuro Exam: Positive: Normal Gait, Normal Speech, Cranial Nerves 3-12 NL, Reflexes 2+ Assessment /Plan Assessment 71-year-old male with history of metastatic rectal adenocarcinoma status post excision of solitary hepatic metastasis status post her radiation therapy to the rectum on chemotherapy currently only on capecitabine, oxaliplatin was stopped several months ago because he had a neurological event after oxaliplatin treatment which was felt may been related to a that presents to the hospital with 4 days history of bright red blood per rectum along with some clots off and on along with dizziness and lightheadedness since yesterday. Patient reports that he has been having seeing blood in his stools for the past 1 month he would have 1 or 2 bouts of bloody bowel movement and then would resolve but this time it has been going on for 4 days without any resolution then he started feeling dizzy lightheaded so he came to the emergency room. He denies any abdominal pain any nausea or vomiting. He also reported that his capecitabine was stopped in the early part of May because of abnormal renal function with plan to reassess in a few weeks to see if there is any improvement in renal function before restarting. On arrival to the ED patient was noted to have a hemoglobin of 6.9. He was also noted to have a creatinine of 1.67 he was ordered 2 units of PRBC. He was admitted to the hospital for GI bleed with symptomatic acute blood loss anemia and JANELLE. GI bleed with acute blood loss anemia This could be either due to radiation proctitis or bleeding from the malignant mass received 2 units of PRBC. Planned for colonoscopy on 06/14/21 JANELLE No obstruction seen in CT abdomen We will hold lisinopril and hydrochlorothiazide Metastatic Rectal cancer with mets to liver and lungs. Has progression of intrahepatic biliary dilatation. CT abd and pelvis shows progression of metastasis in liver and lungs Hypertension Blood pressure low when he came in, now normal Will hold amlodipine, lisinopril, hydrochlorothiazide and atenolol Diabetes We will hold Metformin and glipizide we will place on lispro as per sliding scale. Hyperlipidemia Continue statin Plan/VTE VTE Prophylaxis Ordered?: Yes VS, I&O, 24H, Fishbone Vital Signs/I&O Vital Signs Date Time Temp Pulse Resp B/P (MAP) Pulse Ox O2 Delivery O2 Flow Rate FiO2 06/13/21 06:00 98.0 68 17 117/67 (84) 99 Room Air 06/11/21 16:26 99 I&O- Last 24 Hours up to 6 AM 06/13/21 05:59 Intake Total 1910 ml Output Total 175 ml Balance 1735 ml Laboratory Data 24H LABS Laboratory Tests 2 06/13/21 06:35: Immature Granulocyte % (Auto) 0.5, Neutrophils (%) (Auto) 78.8H, Lymphocytes (%) (Auto) 6.8L, Monocytes (%) (Auto) 12.9H, Eosinophils (%) (Auto) 0.5, Basophils (%) (Auto) 0.5, Neutrophils # (Auto) 4.8, Lymphocytes # (Auto) 0.4L, Monocytes # (Auto) 0.8, Eosinophils # (Auto) 0.0, Basophils # (Auto) 0.0, Nucleated Red Blood Cells % (auto) 0.0, Anion Gap 6L, Glomerular Filtration Rate 49.4, Calcium Level 8.3L 06/13/21 11:00: Bedside Glucose (Misc Panel) 284H CBC/BMP Laboratory Tests 06/12/21 13:38 06/12/21 16:39 06/12/21 21:49 06/13/21 06:35 Sravani Siddiqui MD Jun 13, 2021 11:31
[2021-06-13] MEDS ORDERED: MAGNESIUM CITRATE 300 ML BTL PO ONE ×2 (12:00→19:50)
[2021-06-13 14:00] VITALS: BP 118/98
[2021-06-13] MEDS: OCTREOTIDE ACETATE 100MCG/ML VIAL **IV ADMINISTRATION ONLY IV SCH ×2 (14:25→20:11)
[2021-06-13 19:00] VITALS: BP 114/59
[2021-06-14] VITALS (9 sets, daily range): BP systolic 121–149; BP diastolic 61–82
[2021-06-14] MEDS: OCTREOTIDE ACETATE 100MCG/ML VIAL **IV ADMINISTRATION ONLY IV SCH ×3 (04:41→21:08)
[2021-06-14] MEDS: PANTOPRAZOLE 40MG VIAL (C9113 PER 1) IV SCH ×2 (04:44→17:38)
[2021-06-14 06:40] LABS: BASO % 0.3 % (0.0-1.0); EOS % 0.1 % (0.0-3.0); HEMATOCRIT 29.8 % (42.0-52.0); HEMOGLOBIN 9.3 g/dl (13.5-17.5); LYMPH # 0.5 10^3/uL (1.5-5.0); LYMPH % 6.8 % (24.0-44.0); MEAN CORPUSCULAR HEMOGLOBIN 29.7 pg (27.0-33.0); MEAN CORPUSCULAR HGB CONC 31.2 g/dl (32.0-36.5); MEAN CORPUSCULAR VOLUME 95.2 fl (80.0-96.0); MONO % 12.2 % (2.0-8.0); NEUTROPHILS # 6.4 10^3/uL (1.5-8.5); PLATELET COUNT, AUTOMATED 127 10^3/uL (150-450); RED BLOOD COUNT 3.13 10^6/uL (4.30-6.10); WHITE BLOOD COUNT 7.9 10^3/uL (4.0-10.0)
[2021-06-14 06:55] LABS: CALCIUM LEVEL 8.7 MG/DL (8.8-10.2); CREATININE FOR GFR 1.31 MG/DL (0.70-1.30); GLOMERULAR FILTRATION RATE 57.8 (>49); POTASSIUM SERUM 4.2 MEQ/L (3.5-5.1)
[2021-06-14] MEDS: glipiZIDE (GLUCOTROL) 5 MG TAB PO SCH ×2 (07:30→17:38)
[2021-06-14] MEDS: HumaLOG INSULIN (NovoLOG) PER UNIT SC SCH ×4 (07:30→21:09)
[2021-06-14] MEDS: DOCUSATE SODIUM 100MG CAPSULE PO SCH ×2 (09:00→21:08)
--- NOTE | 2021-06-14 09:08 | IPNPDOC ---
Subjective Date Seen The patient was seen on 06/14/21. Subjective Chief Complaint/HPI Finished colon prep will be going for colonoscopy later today. No bleeding noted with bowel movements during colon prep. Denies any abdominal pain. Had a low-grade temperature of 100 this morning. Objective Physical Examination General Exam: Positive: Alert, Cooperative, No Acute Distress Eye Exam: Positive: PERRLA, Conjunctiva & lids normal, EOMI; Negative: Sclera icteric ENT Exam: Positive: Atraumatic, Mucous membr. moist/pink, Pharynx Normal Neck Exam: Positive: Supple; Negative: JVD, thyromegaly Chest Exam: Positive: Clear to auscultation, Normal air movement Heart Exam: Positive: Rate Normal, Regular Rhythm, Normal S1, Normal S2; Negative: Murmurs, Rubs Abdomen Exam: Positive: Normal bowel sounds, Soft; Negative: Tenderness Extremity Exam: Negative: Clubbing, Cyanosis, Edema Neuro Exam: Positive: Normal Gait, Normal Speech, Cranial Nerves 3-12 NL, Reflexes 2+ Assessment /Plan Assessment 71-year-old male with history of metastatic rectal adenocarcinoma status post excision of solitary hepatic metastasis status post her radiation therapy to the rectum on chemotherapy currently only on capecitabine, oxaliplatin was stopped several months ago because he had a neurological event after oxaliplatin treatment which was felt may been related to a that presents to the hospital with 4 days history of bright red blood per rectum along with some clots off and on along with dizziness and lightheadedness since yesterday. Patient reports that he has been having seeing blood in his stools for the past 1 month he would have 1 or 2 bouts of bloody bowel movement and then would resolve but this time it has been going on for 4 days without any resolution then he started feeling dizzy lightheaded so he came to the emergency room. He denies any abdominal pain any nausea or vomiting. He also reported that his capecitabine was stopped in the early part of May because of abnormal renal function with plan to reassess in a few weeks to see if there is any improvement in renal function before restarting. On arrival to the ED patient was noted to have a hemoglobin of 6.9. He was also noted to have a creatinine of 1.67 he was ordered 2 units of PRBC. He was admitted to the hospital for GI bleed with symptomatic acute blood loss anemia and JANELLE. GI bleed with acute blood loss anemia This could be either due to radiation proctitis or bleeding from the malignant mass received 2 units of PRBC. colonoscopy on 06/14/21 JANELLE No obstruction seen in CT abdomen We will hold lisinopril and hydrochlorothiazide Creatinine is getting better Metastatic Rectal cancer with mets to liver and lungs. Has progression of intrahepatic biliary dilatation. CT abd and pelvis shows progression of metastasis in liver and lungs Hypertension Blood pressure low when he came in, now normal Will hold amlodipine, lisinopril, hydrochlorothiazide and atenolol Diabetes We will hold Metformin and glipizide we will place on lispro as per sliding scale. Hyperlipidemia Continue statin Plan/VTE VTE Prophylaxis Ordered?: Yes VS, I&O, 24H, Fishbone Vital Signs/I&O Vital Signs Date Time Temp Pulse Resp B/P (MAP) Pulse Ox O2 Delivery O2 Flow Rate FiO2 06/14/21 06:00 99.4 80 17 124/73 (90) 97 Room Air 06/11/21 16:26 99 I&O- Last 24 Hours up to 6 AM 06/14/21 05:59 Intake Total 600 ml Output Total 0 ml Balance 600 ml Laboratory Data 24H LABS Laboratory Tests 2 06/13/21 11:00: Bedside Glucose (Misc Panel) 284H 06/13/21 16:12: Bedside Glucose (Misc Panel) 201H 06/13/21 20:48: Bedside Glucose (Misc Panel) 199H 06/14/21 05:56: Immature Granulocyte % (Auto) 0.6, Neutrophils (%) (Auto) 80.0H, Lymphocytes (%) (Auto) 6.8L, Monocytes (%) (Auto) 12.2H, Eosinophils (%) (Auto) 0.1, Basophils (%) (Auto) 0.3, Neutrophils # (Auto) 6.4, Lymphocytes # (Auto) 0.5L, Monocytes # (Auto) 1.0H, Eosinophils # (Auto) 0.0, Basophils # (Auto) 0.0, Nucleated Red Blood Cells % (auto) 0.0, Anion Gap 9, Glomerular Filtration Rate 57.8, Calcium Level 8.7L CBC/BMP Laboratory Tests 06/14/21 05:56 Sravani Siddiqui MD Jun 14, 2021 09:08
[2021-06-14] MEDS ORDERED: LIDOCAINE 2% 100MG/5ML SDV (FOR ANES.) As Ordered ONE (13:52)
[2021-06-14] MEDS ORDERED: propofoL 200 MG/20 ML VIAL As Ordered ONE (13:53)
--- NOTE | 2021-06-14 14:41 | ROOR ---
Patient Name: Mohsen Victor Procedure Date: 06/14/2021 2:25 PM Date of : 1950 Age: 71 Room: [facility] Gender: Male Note Status: Finalized Procedure: Colonoscopy Indications: Rectal bleeding Providers: Neil Bal Jr, MD Referring MD: 2. Inpatient 2. Inpatient Requesting Provider: Medicines: Propofol per Anesthesia Complications: No immediate complications. Procedure: Pre-Anesthesia Assessment: - Prior to the procedure, a History and Physical was performed, and patient medications and allergies were reviewed. The patient is competent. The risks and benefits of the procedure and the sedation options and risks were discussed with the patient. All questions were answered and informed consent was obtained. Patient identification and proposed procedure were verified by the physician and the nurse in the pre-procedure area and in the procedure room. Mental Status Examination: alert and oriented. Airway Examination: normal oropharyngeal airway and neck mobility. Respiratory Examination: clear to auscultation. CV Examination: normal. ASA Grade Assessment: III - A patient with severe systemic disease. After reviewing the risks and benefits, the patient was deemed in satisfactory condition to undergo the procedure. The anesthesia plan was to use moderate sedation / analgesia (conscious sedation). Immediately prior to administration of medications, the patient was re-assessed for adequacy to receive sedatives. The heart rate, respiratory rate, oxygen saturations, blood pressure, adequacy of pulmonary ventilation, and response to care were monitored throughout the procedure. The physical status of the patient was re-assessed after the procedure. The Colonoscope was introduced through the anus and advanced to the rectum. The colonoscopy was unusually difficult due to bowel stenosis. Findings: A diffuse area of severely friable mucosa with contact bleeding was found in the rectum. A malignant-appearing, intrinsic severe stenosis was found in the rectum and was non-traversed. Impression: - Friability with contact bleeding in the rectum. - Stricture in the rectum. - No specimens collected. Recommendation: - Return patient to [facility] for ongoing care. Procedure Code(s): --- Professional --- 34226, Colonoscopy, flexible; diagnostic, including collection of specimen(s) by brushing or washing, when performed (separate procedure) Diagnosis Code(s): --- Professional --- K62.5, Hemorrhage of anus and rectum K62.4, Stenosis of anus and rectum CPT copyright 2019 [employer]. All rights reserved. The codes documented in this report are preliminary and upon claims adjudicator review may be revised to meet current compliance requirements. Neil Bal MD Neil Bal Jr, MD 06/14/2021 2:40:58 PM Electronically signed by Neil Bal Jr, MD Number of Addenda: 0 Note Initiated On: 06/14/2021 2:25 PM Estimated Blood Loss: Estimated blood loss was minimal.
--- NOTE | 2021-06-14 19:35 | IPN ---
PROGRESS NOTE DATE: 06/14/2021 SUBJECTIVE: The patient just underwent attempted colonoscopy, however previously the patient had a rectal obstruction that was diagnosed as a rectal cancer, metastatic to the liver. Once again when we tried to perform this colonoscopy today, I changed over to a gastroscope and despite, having the small scope, I was not able to get this through the proximal rectum, and there was an obstructing mass that is still problematic in this area. More importantly, the patient had extremely friable mucosa in the distal rectum, consistent with radiation proctitis. This was friable enough that it was oozing with just touching the surface and bleeding from different sites. Given the findings that the patient has significant and severe radiation proctitis, options available for him from a general surgery standpoint, I do not perform APC which is performed by gastroenterologists who ablate arteriovenous issues and treat radiation proctitis. If the patient has ongoing bleeding, then maybe one possibility is transfer to a facility with a uniform cap operator. A second option obviously is interventional radiology performing ablative procedure and the next option obviously is for a resection and the next option obviously is to refer to [facility], where he was scheduled to have his combined colorectal as well as liver surgery and see if they can address both of these issues at the same time as well in the near future instead of waiting for this. I have ordered some Proctofoam for this inflammatory process in his rectum and once again, you have the option of seeing if a uniform cap operator is available to assist with some possible treatment therein with the radiation proctitis. Otherwise from a general surgery standpoint, no additional recommendations at this time.
[2021-06-14] MEDS: PROCTOFOAM-HC 1% FOAM 10 GM CAN PR SCH (21:09)
[2021-06-15 00:10] VITALS: BP 120/67
[2021-06-15 04:10] VITALS: BP 131/72
[2021-06-15] MEDS: OCTREOTIDE ACETATE 100MCG/ML VIAL **IV ADMINISTRATION ONLY IV SCH ×2 (04:40→13:00)
[2021-06-15] MEDS: PANTOPRAZOLE 40MG VIAL (C9113 PER 1) IV SCH (04:50)
[2021-06-15 06:26] LABS: BASO % 0.5 % (0.0-1.0); EOS % 0.5 % (0.0-3.0); HEMATOCRIT 28.2 % (42.0-52.0); HEMOGLOBIN 8.9 g/dl (13.5-17.5); LYMPH # 0.5 10^3/uL (1.5-5.0); LYMPH % 8.8 % (24.0-44.0); MEAN CORPUSCULAR HEMOGLOBIN 30.2 pg (27.0-33.0); MEAN CORPUSCULAR HGB CONC 31.6 g/dl (32.0-36.5); MEAN CORPUSCULAR VOLUME 95.6 fl (80.0-96.0); MONO # 0.7 10^3/uL (0.0-0.8); MONO % 11.7 % (2.0-8.0); NEUTROPHILS # 4.6 10^3/uL (1.5-8.5); NEUTROPHILS % 78.2 % (36.0-66.0); PLATELET COUNT, AUTOMATED 112 10^3/uL (150-450); RED BLOOD COUNT 2.95 10^6/uL (4.30-6.10); WHITE BLOOD COUNT 5.8 10^3/uL (4.0-10.0)
[2021-06-15 06:52] LABS: BLOOD UREA NITROGEN 9 MG/DL (7-18); CALCIUM LEVEL 8.9 MG/DL (8.8-10.2); CARBON DIOXIDE LEVEL 26 MEQ/L (21-32); CHLORIDE LEVEL 104 MEQ/L (98-107); CREATININE FOR GFR 1.16 MG/DL (0.70-1.30); GLOMERULAR FILTRATION RATE > 60.0 (>49); GLUCOSE, FASTING 227 MG/DL (70-100); POTASSIUM SERUM 3.9 MEQ/L (3.5-5.1); SODIUM LEVEL 136 MEQ/L (136-145)
[2021-06-15] MEDS: PROCTOFOAM-HC 1% FOAM 10 GM CAN PR SCH (08:10)
[2021-06-15] MEDS: DOCUSATE SODIUM 100MG CAPSULE PO SCH (08:10)
[2021-06-15] MEDS: glipiZIDE (GLUCOTROL) 5 MG TAB PO SCH (08:11)
[2021-06-15] MEDS: HumaLOG INSULIN (NovoLOG) PER UNIT SC SCH ×2 (08:13→13:00)
[2021-06-15 10:00] VITALS: BP 124/70
[2021-06-15] MEDS ORDERED: PROC1AER16 PR (11:59)
[2021-06-15] MEDS ORDERED: ATEN25TA PO (11:59)
[2021-06-15 14:00] VITALS: BP 143/69
--- NOTE | 2021-06-15 17:33 | DS.PDOC ---
Discharge Summary General Date of Admission Jun 11, 2021 at 14:41 Date of Discharge 06/15/2021 Attending Physician: JANINE BRADLEY MD Specialist/Consultants Involve: Neil Bal Jr Discharge Summary PROCEDURES PERFORMED DURING STAY: Trial of colonoscopy, aborted, could not pass scope ADMITTING DIAGNOSES: LGIB DISCHARGE DIAGNOSES: LGIB i/s/o rectal mass also with noted radiation proctitis with friability and oozing Symptomatic acute blood loss anemia JANELLE History of metastatic rectal CA with mets to the liver, s/p external beam radiation to rectal cancer. History of hypertension. Hypercholesterolemia. GE reflux. Diabetes mellitus. History of neuropathy. Hyperlipidemia. COMPLICATIONS/CHIEF COMPLAINT: Gastrointestinal Bleeding. HISTORY OF PRESENT ILLNESS: 71-year-old M with history of metastatic rectal adenocarcinoma status post exci allison of solitary hepatic metastasis status post radiation therapy to the rectum on chemotherapy recently only on capecitabine, while oxaliplatin was stopped several months ago because he had a neurological event after oxaliplatin treatment which was felt may been related to that. He presented with lower GI bleed with hematochezia with a 4-day history of rectal bleeding. There had been discussions about potentia combined resection of a rectal primary as well as a few lesions in the liver at the same time and has been seen by a colorectal surgeon at [facility]. Up to now, he had not had any problems with bright red blood per rectum or radiation proctitis since his radiation. He also had dizziness and lightheadedness and reported seeing blood in his stools for the past 1 month that had gotten worse. He denied any abdominal pain any nausea or vomiting. He also reported that his capecitabine was stopped in the early part of May because of abnormal renal function with plan to reassess in a few weeks to see if there is any improvement in renal function before restarting. HOSPITAL COURSE: On arrival to the ED patient was noted to have a hemoglobin of 6.9. He was also noted to have a creatinine of 1.67. He was transfused 2 units of PRBC. He was admitted to the hospital for GI bleed with symptomatic acute blood loss anemia and JANELLE. After 2u of pRBCs he responded appropriately and his JANELLE also improved. General surgery was consulted for the LGIB and Dr. Bal had planned for a colonoscopy but on attempt he could not pass the scope due to the mass and he had high degree of friability. Given the findings that the patient had significant and severe radiation proctitis surgery recommended gastroenterology evaluation to perhaps ablate arteriovenous issues and treat radiation proctitis but we had no GI coverage during the time of his admission. Thankfully his H/H stabilized and bleeding slowed. He had also suggested interventional radiology performing ablative procedure but given the proceeding stability we have decided to defer to the next definitive option which he recommended which was to return to his colorectal surgeon at [facility] for evauation for resection where there had been developing conversations about resection for a combined approach to have his combined colorectal as well as liver surgery and see if they can address both of these issues at the same time as well in the near future. He did prescribe some Proctofoam for the inflammatory process in his rectum. At this time, we are discharging him home with a prompt with a prompt PCP and oncology a ppointment in the next 5-7d for H/H monitoring and mobilized our staff to make an appointment for him with his colorectal surgeon within 2 weeks. I asked him about transportation to [facility] and he explain that he would be able to have it organized via medical transportation. DISCHARGE MEDICATIONS: Please see below. ALLERGIES: Please see below. PHYSICAL EXAMINATION ON DISCHARGE: VITAL SIGNS: Please see below. General: Alert, Cooperative, No Acute Distress Eyes: PERRLA, Conjunctiva & lids normal, EOMI, anicteric ENT: Atraumatic, Mucous membr. moist/pink, Pharynx Normal Neck: Supple, no JVD, thyromegaly Chest: Clear to auscultation, Normal air movement Heart: Rate Normal, Regular Rhythm, Normal S1, Normal S2, no m/r/g Abdomen: Normal bowel sounds, soft NTND Extremities: No edema, WWP Neuro: Cranial Nerves 3-12 NL, grossly nonfocal examination LABORATORY DATA: Please see below. IMAGING: CT A/P: Lungs: Multiple bilateral lower lung zone pulmonary nodules with interval increase in size; example, an anterior left pulmonary basilar previous 15 mm nodule measures 23.5 mm. Liver: Interval increase in hepatic caudate lobe mass, measuring 6.3 cm, previously 4.0 cm. Atrophic posterior right hepatic lobe with dystrophic calcifications. A posterior right hepatic lobe mass in the involved segment was previously 3.1 cm, now approximately 4.1 cm. Exophytic mass of the hepatic caudate lobe measuring 4.6 cm, previously 2.9 cm. Interval mild increase in right lobe hepatic intrahepatic biliary ductal dilatation. Hepatic benign cysts, largest in the left lobe measuring 5.4 cm. Gallbladder and bile ducts: See "Liver" finding. Pancreas: Normal. No ductal dilation. Spleen: The spleen is enlarged measuring 18.6 cm longitudinally. Adrenal glands: Right adrenal nodule, previously 10.8 mm common L 16.7 mm Kidneys and ureters: Left renal benign cysts, largest 3.2 cm. Stomach and bowel: Moderate rectal wall thickening, increased. Pancolonic diverticula are present without evidence of diverticulitis. Appendix: No evidence of appendicitis. Intraperitoneal space: Mild lateral perihepatic peritoneal fluid. No pneumoperitoneum. Vasculature: Marked aortic atherosclerotic calcification without aneurysm. The iliac arteries show marked bilateral atherosclerotic calcifications without evidence of aneurysm. Lymph nodes: Upper infrarenal aortocaval lymph nodes, largest measuring 2.3 cm short axis, stable. Left infrarenal para-aortic lymph nodes, some stable, 1 increased from 5.2 mm short axis, currently 11.1 mm short axis. Urinary bladder: Unremarkable as visualized. Reproductive: The prostate gland demonstrates nonspecific parenchymal calcifications. Bones/joints: Bilateral lower lumbar facet primary osteoarthritis. Lumbar spine vertebral body marginal osteophytes are noted at multiple levels. No destructive bony process identified. No destructive bony process identified. Soft tissues: Unremarkable. IMPRESSION: 1. Moderate rectal wall thickening, increased. Neoplasia versus proctitis. Clinical correlation to determine the specific etiology is recommended. 2. Interval mild increase in right lobe hepatic intrahepatic biliary ductal dilatation. 3. Interval enlargement of multiple hepatic masses. 4. Interval increase in left para-aortic lymphadenopathy. 5. Upper infrarenal aortocaval lymph nodes, stable. 6. Mild lateral perihepatic peritoneal fluid. 7. Diverticulosis. 8. Mild splenomegaly. 9. Hepatic benign cysts. No follow-up imaging is recommended. 10. Left renal benign cysts. No follow-up imaging is recommended. 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 12. Progression of pulmonary metastatic disease. Fleischner Society recommendations not given due to conspicuous neoplasia. PROGNOSIS: Fair, high risk for readmission especially if colorectal surgery evaluation is delayed ACTIVITY: As tolerated DIET: consistent carb DISCHARGE PLAN: Home with close PCP, oncology follow up and colorectal surgery follow up within 2 weeks DISPOSITION: Home DISCHARGE INSTRUCTIONS: Home with close PCP, oncology follow up and colorectal surgery follow up within 2 weeks ITEMS TO FOLLOWUP ON ON OUTPATIENT: LGIB. Rectal CA DISCHARGE CONDITION: Stable TIME SPENT ON DISCHARGE: 45 minutes. Vital Signs/I&Os Vital Signs Date Time Temp Pulse Resp B/P (MAP) Pulse Ox O2 Delivery O2 Flow Rate FiO2 06/15/21 14:00 97.6 84 18 143/69 (93) 94 Room Air 06/11/21 16:26 99 I&O- Last 24 Hours up to 6 AM 06/15/21 05:59 Intake Total 360 ml Output Total 300 ml Balance 60 ml Laboratory Data Labs 24H Laboratory Tests 2 06/14/21 16:59: Bedside Glucose (Misc Panel) 175H 06/14/21 20:53: Bedside Glucose (Misc Panel) 268H 06/15/21 06:05: Immature Granulocyte % (Auto) 0.3, Neutrophils (%) (Auto) 78.2H, Lymphocytes (%) (Auto) 8.8L, Monocytes (%) (Auto) 11.7H, Eosinophils (%) (Auto) 0.5, Basophils (%) (Auto) 0.5, Neutrophils # (Auto) 4.6, Lymphocytes # (Auto) 0.5L, Monocytes # (Auto) 0.7, Eosinophils # (Auto) 0.0, Basophils # (Auto) 0.0, Nucleated Red Blood Cells % (auto) 0.0, Anion Gap 6L, Glomerular Filtration Rate > 60.0, Calcium Level 8.9 06/15/21 11:41: Bedside Glucose (Misc Panel) 174H CBC/BMP Laboratory Tests 06/15/21 06:05 FSBS Laboratory Tests Test 06/14/21 16:59 06/14/21 20:53 06/15/21 11:41 Range/Units Bedside Glucose (Misc Panel) 175 268 174 80-115 MG/DL Discharge Medications Scheduled Amlodipine Besylate (Amlodipine Besylate) 10 Mg Tablet, 10 MG PO DAILY, (Reported) Atenolol (Atenolol) 25 Mg Tablet, 25 MG PO DAILY Atorvastatin Calcium (Atorvastatin Calcium) 80 Mg Tablet, 80 MG PO DAILY, (Reported) Glipizide (Glipizide) 10 Mg Tablet, 10 MG PO BID, (Reported) Hydrocortisone/Pramoxine (Proctofoam-Hc 1%-1% Foam) 10 Gm Foam, 1 DOSE FL BID Lidocaine (Lidocaine) 15 Gm Cream..g., 1 APLCT TOP ASDIRECTED Apply to [facility] site 30 minutes prior to accessing Loperamide HCl (Loperamide) 2 Mg Capsule, 2 MG PO ASDIRECTED one capsule after each bowel movement to a maximum 6 daily Magnesium Oxide (Magnesium Oxide) 400 Mg Tablet, 400 MG PO DAILY, (Reported) Metformin HCl (Metformin HCl) 1,000 Mg Tablet, 1,000 MG PO BID, (Reported) Omeprazole (Omeprazole) 20 Mg Capsule.dr, 20 MG PO DAILY, (Reported) Potassium Chloride (K-Tab ER) 20 Meq Tablet.er, 1 TAB PO DAILY for low potassium One tab po daily after food Scheduled PRN Ondansetron HCl (Ondansetron HCl) 8 Mg Tablet, 8 MG PO Q8H PRN for NAUSEA OR VOMITING Prochlorperazine Maleate (Prochlorperazine Maleate) 10 Mg Tablet, 10 MG PO Q6H PRN for NAUSEA Allergies Coded Allergies: No Known Allergies (Unverified , 05/08/19) JANINE BRADLEY MD Jun 15, 2021 16:22
== END 2021-06-15 14:00 | disposition home or self-care (01) | DRG 378 ==
LOC: M ED 11:25 → M ED INP 14:41 → ENRESERV 16:32 → M PCU 17:41 → M MSPAV 06-12 17:40
PROVIDERS: ADMIT Internal Medicine Nephrology; ATTEND Internal Medicine
PROC: 30233N1 Transfusion of Nonautologous Red Blood Cells into Peripheral Vein, Percutaneous Approach (ICD-10-PCS; 2021-06-11)
PROC: 0DJD8ZZ Inspection of Lower Intestinal Tract, Via Natural or Artificial Opening Endoscopic (ICD-10-PCS; principal; 2021-06-14 14:00)
DX: K62.5 Hemorrhage of anus and rectum (principal); D62 Acute posthemorrhagic anemia; N17.9 Acute kidney failure, unspecified; C20 Malignant neoplasm of rectum; C78.7 Secondary malignant neoplasm of liver and intrahepatic bile duct; I10 Essential (primary) hypertension; E11.40 Type 2 diabetes mellitus with diabetic neuropathy, unspecified; K62.7 Radiation proctitis; K62.4 Stenosis of anus and rectum; E78.5 Hyperlipidemia, unspecified; K21.9 Gastro-esophageal reflux disease without esophagitis; Z90.49 Acquired absence of other specified parts of digestive tract; Z92.3 Personal history of irradiation; Z87.891 Personal history of nicotine dependence; Z20.822 Contact with and (suspected) exposure to COVID-19; Z79.82 Long term (current) use of aspirin; Z79.84 Long term (current) use of oral hypoglycemic drugs; Z79.899 Other long term (current) drug therapy

== ENCOUNTER → 2021-06-22 | Outpatient (CLI) | payer MEDICARE, MEDICAID ==
[~2021-06-22] MED LIST changes: +ATEN25TA PO; +ATIV1TAB10 PO; +ATOR80TA59 PO; +HYOS125TA PO; +METF-877 PO; +MORP1SOL5 PO; +ONDA-84 PO; -ONDA8TAB10 PO; -PROC10TA4 PO; +PROC10TA5 PO; +PROC1AER16 PR
[2021-06-22 17:29] LABS: BASO % 0.3 % (0.0-1.0); EOS # 0.1 10^3/uL (0.0-0.5); EOS % 0.6 % (0.0-3.0); HEMATOCRIT 26.9 % (42.0-52.0); HEMOGLOBIN 8.3 g/dl (13.5-17.5); LYMPH # 0.6 10^3/uL (1.5-5.0); LYMPH % 6.3 % (24.0-44.0); MEAN CORPUSCULAR HEMOGLOBIN 29.2 pg (27.0-33.0); MEAN CORPUSCULAR HGB CONC 30.9 g/dl (32.0-36.5); MEAN CORPUSCULAR VOLUME 94.7 fl (80.0-96.0); MONO # 0.9 10^3/uL (0.0-0.8); MONO % 9.8 % (2.0-8.0); NEUTROPHILS # 7.8 10^3/uL (1.5-8.5); NEUTROPHILS % 82.2 % (36.0-66.0); PLATELET COUNT, AUTOMATED 194 10^3/uL (150-450); RED BLOOD COUNT 2.84 10^6/uL (4.30-6.10); WHITE BLOOD COUNT 9.5 10^3/uL (4.0-10.0)
[2021-06-22 17:38] LABS: INR 1.26; PROTHROMBIN TIME 16.2 SECONDS (12.7-14.5)
[2021-06-22 18:01] LABS: ALBUMIN 2.4 GM/DL (3.2-5.2); BILIRUBIN,DIRECT 8.7 MG/DL (0.0-0.2); BILIRUBIN,TOTAL 9.8 MG/DL (0.2-1.0); CALCIUM LEVEL 8.5 MG/DL (8.8-10.2); CREATININE FOR GFR 1.62 MG/DL (0.70-1.30); GLOMERULAR FILTRATION RATE 45.2 (>49); PERCENT SATURATION 8.4 % (19.7-50.0); POTASSIUM SERUM 4.4 MEQ/L (3.5-5.1); TOTAL PROTEIN 6.9 GM/DL (6.4-8.2)
== END ==
LOC: M PLALAB 14:44
PROVIDERS: ATTEND Student in an Organized Health Care Education/Training Program
DX: K83.1 Obstruction of bile duct (principal); D64.9 Anemia, unspecified
CPT/HCPCS: 36415; 80053; 82248; 82607; 82728; 84466; 85025; 85046; 85610; 85730; G0463

== ENCOUNTER → 2021-06-22 | Outpatient (REF) | payer MEDICARE, MEDICAID | LOC: M SFHCPLAZ 14:35 | PROVIDERS: ATTEND Family Medicine | DX: K83.1 Obstruction of bile duct (principal); D64.9 Anemia, unspecified ==

== ENCOUNTER 2021-06-28 09:47 | Emergency (ER) | payer MEDICAID, MEDICARE, OTHER ==
[2021-06-28] VITALS (8 sets, daily range): BP systolic 103–128; BP diastolic 57–69
[~2021-06-28] VITALS: Ht 172.7 cm; Wt 89.7 kg
[~2021-06-28 09:47] MED LIST changes: -ATIV1TAB10 PO; -HYOS125TA PO; -MORP1SOL5 PO; -ONDA-84 PO; +ONDA8TAB10 PO; +PROC10TA4 PO; -PROC10TA5 PO
[2021-06-28] MEDS ORDERED: NS 500 ML IV ONE (10:25)
--- NOTE | 2021-06-28 10:43 | REP ---
INDICATION: jaundice COMPARISON: 10/13/2020 TECHNIQUE: Portable AP view of the chest FINDINGS: The mediastinum and cardiac silhouette are stable and within normal limits for portable technique. Umakid-M-Pdya with tip in the SVC. The lung green demonstrate subtle small scattered rounded nodules highly suspicious for underlying metastatic disease. No effusion. No consolidation. No pneumothorax. Skeletal structures are intact. IMPRESSION: Subtle scattered bilateral nodules highly suspicious for metastatic disease. <Electronically signed by Jhonathan Villegas > 06/28/21 1037
[2021-06-28 11:18] LABS: BASO % 0.3 % (0.0-1.0); EOS % 0.3 % (0.0-3.0); HEMATOCRIT 21.9 % (42.0-52.0); LYMPH # 0.6 10^3/uL (1.5-5.0); MEAN CORPUSCULAR HEMOGLOBIN 28.8 pg (27.0-33.0); MEAN CORPUSCULAR HGB CONC 31.1 g/dl (32.0-36.5); MEAN CORPUSCULAR VOLUME 92.8 fl (80.0-96.0); MONO # 0.9 10^3/uL (0.0-0.8); MONO % 9.6 % (2.0-8.0); NEUTROPHILS # 7.7 10^3/uL (1.5-8.5); NEUTROPHILS % 83.3 % (36.0-66.0); PLATELET COUNT, AUTOMATED 179 10^3/uL (150-450); RED BLOOD COUNT 2.36 10^6/uL (4.30-6.10); WHITE BLOOD COUNT 9.2 10^3/uL (4.0-10.0)
[2021-06-28] MEDS ORDERED: ISOVUE-370 76% 100ML VIAL As Ordered ONE (11:22)
[2021-06-28 11:27] LABS: HEMOGLOBIN 6.8 g/dl (13.5-17.5)
[2021-06-28 11:28] LABS: INR 1.3; PROTHROMBIN TIME 16.6 SECONDS (12.7-14.5)
[2021-06-28 11:29] LABS: PARTIAL THROMBOPLASTIN TIME 38.8 SECONDS (25.9-37.0)
--- NOTE | 2021-06-28 11:40 | REP ---
INDICATION: jaundice; hx colon ca stage 4. COMPARISON: CT 06/11/2021, 02/10/2021. TECHNIQUE: Real-time sonographic evaluation of right upper quadrant performed. FINDINGS: The patient has had a prior cholecystectomy. Intrahepatic biliary dilatation is noted. The common bile duct is dilated up to 9 mm.. Multiple solid nodules are seen in the liver compatible with metastases. The largest is posteriorly on the right 5.7 x 6.7 x 7.1 cm, another in the right lobe measures 2.5 x 3.0 x 2.7 cm. Cystic structures are also seen, the largest is in the right lobe 4.7 x 3.9 x 4.8 cm. Pancreas is not seen due to overlying bowel gas. The right kidney demonstrates no hydronephrosis, with a normal size of 11.9 cm in length. A cyst in the upper pole of the right kidney measures 1.9 x 1.7 x 2.0 cm.There is mild perihepatic free fluid. IMPRESSION: There is intrahepatic and extrahepatic biliary dilatation, the common bile duct measures up to 9 mm in diameter. Multiple liver metastases again noted. The largest is posteriorly in the right lobe 5.7 x 6.7 x 7.1 cm. There is mild perihepatic free fluid. <Electronically signed by Dudley Gomez > 06/28/21 [id number]
[2021-06-28 11:49] LABS: RSV AMPLIFICATION NEGATIVE (NEGATIVE)
--- NOTE | 2021-06-28 11:58 | REP ---
INDICATION: jaundiced; gi bleed; hx stage 4 colon ca. COMPARISON: 06/11/2021 TECHNIQUE: Axial contrast-enhanced images from the lung bases to the pubic symphysis using 100 cc Isovue 370 intravenous contrast material. . This CT examination was performed using the following dose reduction techniques: Automated exposure control, adjustment of mA and/or kv according to the patient's size, and the use of iterative reconstruction technique. FINDINGS: Liver demonstrates innumerable rim enhancing necrotic mass lesions primarily noted within the caudate lobe and right hepatic lobe as well as substantial intrahepatic biliary ductal dilatation. Perihepatic fluid and stranding is also identified as well as adenopathy in the demario hepatis and retroperitoneum. These findings appear considerably progressed when compared with noncontrast CT dated 06/11/2021 and are highly suspicious for malignancy including hepatocellular carcinoma and cholangiocarcinoma. Spleen, pancreas, left adrenal gland are normal. Kidneys demonstrate simple cysts without hydronephrosis. 1.8 cm right adrenal mass consistent with metastatic focus noted. The enteric system is without obstruction. Diverticulosis noted. There is mucosal thickening involving the sigmoid and rectosigmoid which is nonspecific by CT evaluation. Pelvis demonstrates bladder wall thickening and hazy contour suggesting underlying cystitis. Prostate gland is age-appropriate. No free air. Skeletal structures demonstrate degenerative changes without focal osseous abnormality. Lung bases demonstrate innumerable metastatic lesions up to roughly 2.7 cm. IMPRESSION: 1. Findings as described above consistent with malignancy possibly hepatocellular primary or cholangiocarcinoma primary. However there is a given history of colorectal carcinoma and this may represent extensive metastatic disease related to such. <Electronically signed by Jhonathan Villegas > 06/28/21 [id number]
[2021-06-28 13:03] LABS: ALBUMIN 1.9 GM/DL (3.2-5.2); ALT/SGPT 74 U/L (12-78); AMYLASE 44 U/L (25-115); BILIRUBIN,DIRECT 8.3 MG/DL (0.0-0.2); BILIRUBIN,TOTAL 8.9 MG/DL (0.2-1.0); BLOOD UREA NITROGEN 9 MG/DL (7-18); CALCIUM LEVEL 8.2 MG/DL (8.8-10.2); CARBON DIOXIDE LEVEL 26 MEQ/L (21-32); CHLORIDE LEVEL 106 MEQ/L (98-107); GLOMERULAR FILTRATION RATE > 60.0 (>49); GLUCOSE, FASTING 224 MG/DL (70-100); LIPASE 155 U/L (73-393); MAGNESIUM LEVEL 1.5 MG/DL (1.8-2.4); POTASSIUM SERUM 4.7 MEQ/L (3.5-5.1); SODIUM LEVEL 135 MEQ/L (136-145); TOTAL PROTEIN 5.9 GM/DL (6.4-8.2)
[2021-06-28] MEDS ORDERED: MAG SULF 1GM/100ML (MAG RUN) 1 GM in IV 1 EA IV ONE (13:15)
[2021-06-28] MEDS ORDERED: PANTOPRAZOLE 40MG VIAL (C9113 PER 1) IV ONE (16:05)
[2021-06-28] MEDS ORDERED: DEXTROSE 50% 50 ML SYRINGE IV PRN (16:35)
[2021-06-28] MEDS ORDERED: GLUCAGON INJ 1MG VIAL SC PRN (16:35)
[2021-06-28] MEDS ORDERED: NS 0.45% 1,000 ML IV SCH (16:35)
[2021-06-28] MEDS ORDERED: GLUCOSE 4GM CHEW TABLET PO PRN (16:35)
[2021-06-28] MEDS ORDERED: HumaLOG INSULIN (NovoLOG) PER UNIT SC SCH (18:00)
--- NOTE | 2021-06-28 18:33 | ECGEPIP ---
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
--- NOTE | 2021-06-28 20:56 | CR ---
CONSULTATION DATE: 06/28/2021 CONSULTATION REQUESTED BY: Yoni Pate REASON FOR CONSULTATION: Emergency room consultation. HISTORY OF PRESENT ILLNESS: This is a hospitalist generated emergency room (ER) consultation on a patient. The emergency room is working for a transfer to a higher level of care. We have no gastroenterology nor interventional radiology capacity and the patient has obstructive jaundice for metastatic colorectal cancer metastatic to the liver. He is followed by [facility]. Dr. Michael Moreland was one of his surgeons. I have access to some office notes from 05/27/2020. The note states status post cholecystectomy, aborted liver resection 05/04/2020 due to tumor involvement left hepatic duct and portal vein as metastatic colon cancer metastatic to liver and now looks like lungs, first diagnosed in 2018. He was seen by his primary care provider, Dr. Yo, in the graduate medical education (GME) clinic on 06/22/2020. She notes that he had an appointment with hematology/oncology in [place] on 06/24/2021, but we have no records from that visit. She notes that patient has metastatic rectal adenocarcinoma status post excision of a solitary hepatic metastasis status post radiation therapy of the rectum, chemotherapy with capecitabine after neurologic side effects from a previous regimen. He was hospitalized at [facility] in May 2021 for lower gastrointestinal (GI) bleed, underwent a colonoscopy on 06/14/2021. This showed diffuse area of friable mucosa with contact bleeding in the rectum and a malignant appearing intrinsic severe stenosis in the rectum. This was not biopsied. Lab work done during Dr. Yo's visit showed a bilirubin of 9.8, significantly higher than he had when hospitalized a few weeks earlier, when total bilirubin was 2.3. Dr. Yo attempted to have the patient seen by interventional radiology, but we do not have any interventional radiologist available at this time. She discontinued atorvastatin and metformin at that visit. OTHER PAST MEDICAL HISTORY: 1. Type 2 diabetes. 2. Hyperlipidemia. 3. Hypertensive heart disease. SURGICAL HISTORY: 1. Partial resection of liver metastasis. 2. Chemotherapy port placement. 3. Appendectomy 1965. FAMILY HISTORY: Paternal grandmother had breast cancer. Brother had throat cancer. Sister had breast cancer. SOCIAL HISTORY: He is a former smoker. Denies any alcohol. REVIEW OF SYSTEMS: Denies nausea, vomiting, fever, chills, night sweats. Urine is dark and stool has become light in color. PHYSICAL EXAMINATION: VITAL SIGNS: Blood pressure 106/63, pulse 68, respiratory rate 18, 98% oxygen saturation, afebrile 96.8 degrees. GENERAL APPEARANCE: Jaundiced, resting in bed. No distress. HEENT: Pupils equal and react to light. Pharynx benign. NECK: No masses. LUNGS: Clear. HEART: Regular without murmur. ABDOMEN: Soft, nondistended. Liver edge is palpable. EXTREMITIES: No clubbing or cyanosis. There is 1+ peripheral edema. He has no asterixis present. He is deeply jaundiced. LABORATORY DATA: White count 9.2, hemoglobin 6.8 (it was 8.3 on 06/22/2021), platelets 179. INR is 1.3. Sodium 135, potassium 4.7, BUN 9, creatinine 1.0, glucose 224. Last hemoglobin A1C from 05/28/2021 was 6.1. Bilirubin is 8.9 with a direct component of 8.3. AST 169, alkaline phosphatase 619, albumin is 1.9, magnesium 1.5. COVID test is negative. IMAGING DATA: Chest x-ray shows probable numerous metastases. CT of the abdomen and pelvis compared from two weeks ago, on 06/11/2021 shows numeral rim-enhancing necrotic mass lesions within the caudate lobe and right hepatic lobe, substantial intrahepatic ductal dilatation, findings considerably progressed when compared to non-contrast CT from 06/11/2021. There is a 1.8 cm right adrenal mass consistent with metastatic focus noted. Lung bases show numeral metastatic lesions. Liver ultrasound did not add much to the CT. Intra- and extrahepatic ductal dilatation, common bile duct 9 mm. IMPRESSION: We were asked to consult on this patient for medical evaluation in anticipation of patient being transferred to higher level of care with access to either gastroenterology or interventional radiology. I agree with the need for transfer. I have ordered intravenous (IV) fluids. He is being transfused 2 units of packed red blood cells. Sliding scale insulin coverage for the diabetes. Metformin and atorvastatin were already discontinued as an outpatient. His blood pressure is soft, so his antihypertensives are also being held. Prognosis is poor. Current, he is a FULL CODE. I have reviewed his primary care chart. There is no medical orders for life-sustaining treatment (MOLST) form.
== END 2021-06-28 20:29 | disposition short-term general hospital (02) ==
LOC: M ED 09:47
DX: D64.9 Anemia, unspecified (principal); C18.9 Malignant neoplasm of colon, unspecified; C78.7 Secondary malignant neoplasm of liver and intrahepatic bile duct; R91.1 Solitary pulmonary nodule; R17 Unspecified jaundice; K92.2 Gastrointestinal hemorrhage, unspecified; E11.9 Type 2 diabetes mellitus without complications; I10 Essential (primary) hypertension; I45.10 Unspecified right bundle-branch block; Z90.49 Acquired absence of other specified parts of digestive tract
CPT/HCPCS: 36430; 71045; 74177; 76705; 80047; 80048; 80076; 82150; 83605; 83690; 83735; 85025; 85610; 85730; 86850; 86900; 86901; 86920; 87040; 87631; 93005; 93041; 96361; 96374; 99285; C9113; J3475; P9016; Q9967

== ENCOUNTER → 2021-07-07 | Outpatient (REF) | payer OTHER, MEDICARE, MEDICAID ==
[~2021-07-07] MED LIST changes: +ONDA-84 PO; -ONDA8TAB10 PO; -PROC10TA4 PO; +PROC10TA5 PO
[2021-07-07 12:12] LABS: BASO # 0.1 10^3/uL (0.0-0.2); BASO % 0.7 % (0.0-1.0); EOS # 0.1 10^3/uL (0.0-0.5); EOS % 0.9 % (0.0-3.0); HEMATOCRIT 29.4 % (42.0-52.0); HEMOGLOBIN 8.9 g/dl (13.5-17.5); LYMPH # 1.5 10^3/uL (1.5-5.0); LYMPH % 15.1 % (24.0-44.0); MEAN CORPUSCULAR HEMOGLOBIN 28.4 pg (27.0-33.0); MEAN CORPUSCULAR HGB CONC 30.3 g/dl (32.0-36.5); MEAN CORPUSCULAR VOLUME 93.9 fl (80.0-96.0); MONO # 0.9 10^3/uL (0.0-0.8); MONO % 9.5 % (2.0-8.0); NEUTROPHILS # 7.2 10^3/uL (1.5-8.5); NEUTROPHILS % 73.3 % (36.0-66.0); PLATELET COUNT, AUTOMATED 222 10^3/uL (150-450); RED BLOOD COUNT 3.13 10^6/uL (4.30-6.10); WHITE BLOOD COUNT 9.8 10^3/uL (4.0-10.0)
[2021-07-07 13:17] LABS: ALT/SGPT 42 U/L (12-78); BILIRUBIN,TOTAL 6.5 MG/DL (0.2-1.0); BLOOD UREA NITROGEN 9 MG/DL (7-18); CALCIUM LEVEL 8.6 MG/DL (8.8-10.2); CARBON DIOXIDE LEVEL 24 MEQ/L (21-32); CHLORIDE LEVEL 108 MEQ/L (98-107); CREATININE FOR GFR 1.18 MG/DL (0.70-1.30); GLOMERULAR FILTRATION RATE > 60.0 (>49); GLUCOSE, FASTING 98 MG/DL (70-100); POTASSIUM SERUM 4.2 MEQ/L (3.5-5.1); SODIUM LEVEL 142 MEQ/L (136-145); TOTAL PROTEIN 6.4 GM/DL (6.4-8.2)
== END ==
LOC: M LABDRAWC 11:33
DX: C18.9 Malignant neoplasm of colon, unspecified (principal); C78.7 Secondary malignant neoplasm of liver and intrahepatic bile duct

== ENCOUNTER → 2021-07-20 | Outpatient (POV) | payer OTHER ==
[~2021-07-20] VITALS: Ht 172.7 cm; Wt 86.3 kg
[2021-07-20 11:00] VITALS: BP 115/76
== END ==
LOC: M IRPOV 10:54
PROVIDERS: ATTEND Radiology Diagnostic Radiology
DX: C18.9 Malignant neoplasm of colon, unspecified (principal); C78.7 Secondary malignant neoplasm of liver and intrahepatic bile duct; Z51.5 Encounter for palliative care; Z92.21 Personal history of antineoplastic chemotherapy

== ENCOUNTER → 2021-07-21 | Outpatient (CLI) | payer OTHER ==
[2021-07-21 15:15] VITALS: BP 117/60
== END ==
LOC: M IRPRO 12:41
PROVIDERS: ATTEND Radiology Diagnostic Radiology
DX: C18.9 Malignant neoplasm of colon, unspecified (principal); K83.1 Obstruction of bile duct

== ENCOUNTER 2021-07-24 13:06 | Inpatient (IN) | payer OTHER ==
[2021-07-24] VITALS (7 sets, daily range): BP systolic 105–119; BP diastolic 59–91
[~2021-07-24] VITALS: Ht 172.7 cm; Wt 90.0 kg
[2021-07-24 14:08] LABS: HEMATOCRIT 26.8 % (42.0-52.0); HEMOGLOBIN 8.5 g/dl (13.5-17.5); MEAN CORPUSCULAR HEMOGLOBIN 27.2 pg (27.0-33.0); MEAN CORPUSCULAR HGB CONC 31.7 g/dl (32.0-36.5); MEAN CORPUSCULAR VOLUME 85.9 fl (80.0-96.0); PLATELET COUNT, AUTOMATED 155 10^3/uL (150-450); RED BLOOD COUNT 3.12 10^6/uL (4.30-6.10)
[2021-07-24 14:30] LABS: CALCIUM LEVEL 7.9 MG/DL (8.8-10.2); CREATININE FOR GFR 1.55 MG/DL (0.70-1.30); GLOMERULAR FILTRATION RATE 47.6 (>49); POTASSIUM SERUM 4.9 MEQ/L (3.5-5.1)
[2021-07-24] MEDS ORDERED: NS 500 ML IV ONE (16:20)
[2021-07-24] MEDS ORDERED: MORPHINE 2 MG/ML 1ML VIAL (J2270) IV PRN (16:20)
[2021-07-24] MEDS ORDERED: SCOPOLAMINE 1MG TRANSDERMAL PATCH TOP PRN (16:20)
[2021-07-24] MEDS ORDERED: LORazepam 2 MG/ML VIAL IV PRN (16:20)
[2021-07-24] MEDS ORDERED: HOME MED LIST COMPLETE! XX SCH (17:35)
[2021-07-25 00:11] VITALS: BP 107/63
[2021-07-25 01:11] VITALS: BP 110/60
[2021-07-26] VITALS (8 sets, daily range): BP systolic 112–124; BP diastolic 68–73
[2021-07-26] MEDS ORDERED: ceFAZolin 1GM VIAL (J0690 PER 500MG) ONE (08:22)
[2021-07-26] MEDS ORDERED: diphenhydrAMINE 50MG/ML VIAL (J1200) ONE (08:23)
[2021-07-26] MEDS ORDERED: MIDAZOLAM INJ 2MG/2ML VIAL (J2250 PER 1MG) ONE (08:24)
[2021-07-26] MEDS ORDERED: ISOVUE-300 61% 50ML VIAL ONE (08:24)
[2021-07-26] MEDS ORDERED: LIDOCAINE 1% MDV 20ML VIAL ONE (08:24)
[2021-07-26] MEDS ORDERED: NS 1,000 ML IV SCH (08:30)
[2021-07-26] MEDS ORDERED: cefTRIAXone SOD 1 GM in D5W MINI-BAG PLUS 50 ML IV ONE (08:45)
[2021-07-26] MEDS ORDERED: HYDROmorphone HCL 2MG/ML 1ML VIAL As Ordered ONE (09:14)
[2021-07-26] MEDS ORDERED: PROMETHAZINE INJ 25 MG/ML VIAL (J2550) As Ordered ONE (10:01)
[2021-07-26] MEDS ORDERED: SODIUM CHLORIDE 0.9% INJ 10 ML SYR IV PRN (14:45)
[2021-07-26] MEDS: SODIUM CHLORIDE 0.9% INJ 10 ML SYR IV SCH (15:22)
[2021-07-27 02:00] VITALS: BP 99/59
[2021-07-27 06:00] VITALS: BP 110/76
[2021-07-27] MEDS: SODIUM CHLORIDE 0.9% INJ 10 ML SYR IV SCH (10:20)
[2021-07-27] MEDS: ACETAMINOPHEN TAB 650MG DOSE (2X325MG) PO PRN (16:15)
[2021-07-28] MEDS: SODIUM CHLORIDE 0.9% INJ 10 ML SYR IV SCH (12:41)
[2021-07-29] MEDS: POLYVINYL ALCOHOL OPHTH SOLN 15 ML(LIQUITEARS) OU PRN ×2 (04:16→19:18)
[2021-07-29] MEDS: MORPHINE 10MG/0.5ML ORAL CONCENTRATE SOLUTION U/D SL PRN (05:16)
[2021-07-29] MEDS: LORazepam 1 MG TAB PO PRN (05:48)
[2021-07-30] MEDS: MORPHINE 10MG/0.5ML ORAL CONCENTRATE SOLUTION U/D SL PRN ×2 (00:29→21:26)
[2021-07-30] MEDS: POLYVINYL ALCOHOL OPHTH SOLN 15 ML(LIQUITEARS) OU PRN ×2 (00:29→21:27)
[2021-07-30] MEDS: LORazepam 1 MG TAB PO PRN ×2 (00:33→21:26)
[2021-07-31] MEDS: POLYVINYL ALCOHOL OPHTH SOLN 15 ML(LIQUITEARS) OU PRN (10:05)
[2021-07-31] MEDS: LORazepam 1 MG TAB PO PRN (11:19)
[2021-07-31] MEDS: MORPHINE 10MG/0.5ML ORAL CONCENTRATE SOLUTION U/D SL PRN (11:20)
[2021-08-01] MEDS: POLYVINYL ALCOHOL OPHTH SOLN 15 ML(LIQUITEARS) OU PRN (09:04)
[2021-08-01] MEDS: ACETAMINOPHEN TAB 650MG DOSE (2X325MG) PO PRN (09:04)
[2021-08-01] MEDS: LORazepam 1 MG TAB PO PRN (15:03)
[2021-08-01] MEDS: MORPHINE 10MG/0.5ML ORAL CONCENTRATE SOLUTION U/D SL PRN ×2 (15:04→20:36)
[2021-08-02] MEDS: POLYVINYL ALCOHOL OPHTH SOLN 15 ML(LIQUITEARS) OU PRN ×2 (10:23→14:21)
[2021-08-02] MEDS: MORPHINE 10MG/0.5ML ORAL CONCENTRATE SOLUTION U/D SL PRN ×2 (10:31→14:21)
[2021-08-02] MEDS: LORazepam 1 MG TAB PO PRN (15:04)
[2021-08-03] MEDS: MORPHINE 10MG/0.5ML ORAL CONCENTRATE SOLUTION U/D SL PRN ×3 (03:12→13:53)
[2021-08-03] MEDS: POLYVINYL ALCOHOL OPHTH SOLN 15 ML(LIQUITEARS) OU PRN (10:22)
[2021-08-03] MEDS ORDERED: HYOS125TA PO ×2 (10:37→12:27)
[2021-08-03] MEDS ORDERED: ATIV1TAB10 PO ×2 (10:37→12:27)
[2021-08-03] MEDS ORDERED: MORP1SOL5 PO ×2 (10:37→12:27)
[2021-08-03] MEDS: LORazepam 1 MG TAB PO PRN (13:53)
== END 2021-08-03 15:25 | disposition hospice, inpatient (51) | DRG 375 ==
LOC: M ED 13:06 → M ED INP 16:17 → M MSPAV 19:50
PROVIDERS: ADMIT Internal Medicine; ATTEND Internal Medicine
PROC: 30233N1 Transfusion of Nonautologous Red Blood Cells into Peripheral Vein, Percutaneous Approach (ICD-10-PCS; principal; 2021-07-24)
DX: C18.9 Malignant neoplasm of colon, unspecified (principal); C78.7 Secondary malignant neoplasm of liver and intrahepatic bile duct; C20 Malignant neoplasm of rectum; D62 Acute posthemorrhagic anemia; K62.5 Hemorrhage of anus and rectum; K83.3 Fistula of bile duct; N17.9 Acute kidney failure, unspecified; Z51.5 Encounter for palliative care; Z92.21 Personal history of antineoplastic chemotherapy; I10 Essential (primary) hypertension; E11.40 Type 2 diabetes mellitus with diabetic neuropathy, unspecified; K21.9 Gastro-esophageal reflux disease without esophagitis; Z92.3 Personal history of irradiation; Z66 Do not resuscitate